=== PATIENT | male | born 1980 | race Caucasian/White ===

== ENCOUNTER → 2021-02-23 11:46 | Outpatient (BNVA) | payer MEDICARE, SELFPAY | PROVIDERS: Visit Provider Nurse Practitioner Family | DX: Z00.00 Encounter for general adult medical examination without abnormal findings (principal); E16.2 Hypoglycemia, unspecified; I10 Essential (primary) hypertension; R45.1 Restlessness and agitation; F11.20 Opioid dependence, uncomplicated | CPT/HCPCS: 80053; 80061; 82607; 83036; 83721; 84443; 87522; G0103 ==

== ENCOUNTER → 2021-07-03 10:00 | Outpatient (BNVA) | payer MEDICARE, SELFPAY | PROVIDERS: Visit Provider Nurse Practitioner Family | DX: R20.2 Paresthesia of skin (principal); R42 Dizziness and giddiness; R79.89 Other specified abnormal findings of blood chemistry | CPT/HCPCS: 80053; 82306; 82607; 83550; 84403 ==

== ENCOUNTER → 2021-07-11 08:34 | Outpatient (BNVA) | payer MEDICARE, SELFPAY | PROVIDERS: Visit Provider Nurse Practitioner Family | DX: R79.89 Other specified abnormal findings of blood chemistry (principal) | CPT/HCPCS: 84403 ==

== ENCOUNTER → 2021-11-22 15:46 | Outpatient (BNVA) | payer MEDICARE, SELFPAY | PROVIDERS: Visit Provider Nurse Practitioner Family | DX: E29.1 Testicular hypofunction (principal); D50.9 Iron deficiency anemia, unspecified; Z13.1 Encounter for screening for diabetes mellitus; E55.9 Vitamin D deficiency, unspecified; R00.2 Palpitations; G89.21 Chronic pain due to trauma; I10 Essential (primary) hypertension; M54.50 Low back pain, unspecified; F11.90 Opioid use, unspecified, uncomplicated | CPT/HCPCS: 80053; 82272; 82728; 83001; 83002; 83550; 83735; 84146; 84402; 85025 ==

== ENCOUNTER → 2021-11-23 12:55 | Outpatient (BNVA) | payer MEDICARE, SELFPAY | PROVIDERS: Visit Provider Internal Medicine Cardiovascular Disease | DX: R00.2 Palpitations (principal); I49.3 Ventricular premature depolarization; I49.1 Atrial premature depolarization | CPT/HCPCS: 93005; 93242 ==

== ENCOUNTER → 2021-12-13 10:15 | Outpatient (BNVA) | payer MEDICARE, SELFPAY | PROVIDERS: Visit Provider Internal Medicine Cardiovascular Disease | DX: R00.2 Palpitations (principal); D50.9 Iron deficiency anemia, unspecified | CPT/HCPCS: 82272 ==

== ENCOUNTER 2022-07-13 08:05 | Outpatient (CLI) | payer MEDICARE, SELFPAY ==
[2022-07-13 09:28] LABS: Basophils # 0.1 10^3/uL (0.0-0.1); Basophils % 0.5 %; Eosinophils # 0.3 10^3/uL (0.0-0.8); Hematocrit 47.7 % (42.0-52.0); Hemoglobin 15.6 g/dL (11.7-16.6); Lymphocytes % 30.9 %; Mean Corpuscular HGB Conc 32.7 g/dL (30.0-36.0); Mean Corpuscular Volume 85.5 fl (80-94); Mean Platelet Volume 11.8 fL (7.4-10.4); Monocytes # 0.7 10^3/uL (0.2-0.9); Monocytes % 7.6 %; Neutrophils # 5.52 10^3/uL (1.8-7.7); Neutrophils % 57.6 %; Nucleated Red Blood Cells % 0 %; Platelet Count 215 10^3/cmm (130-400); Red Blood Count 5.58 10^6/uL (4.1-5.3); Red Cell Distribution Width 13.6 % (12.1-15.1); White Blood Count 9.6 10^3/uL (4.0-10.0)
[2022-07-13 10:17] LABS: 25 Hydroxy Vitamin D 34 ng/mL (30-100); Alanine Aminotransferase 18 U/L (0-41); Albumin Level 4.3 g/dL (3.5-5.2); Alkaline Phosphatase 70 U/L (40-130); Anion Gap 12.2 (5-19); Aspartate Amino Transferase 21 U/L (0-40); Blood Urea Nitrogen 11 mg/dL (6-20); Calcium 9.1 mg/dL (8.5-10.5); Carbon Dioxide 30 mmol/L (22-29); Chloride 99 mmol/L (98-107); Chol HDL Ratio 6.31 mg/dL (1.0-5.00); Cholesterol 164 mg/dL (0-200); Globulin 3.1 g/dL (1.3-4.6); Glomerular Filtration Rate 81.9 mL/min (90-130); Glucose 86 mg/dL (65-115); HDL Cholesterol 26 mg/dL (60-100); Iron 121 ug/dL (59-158); LDL Cholesterol Calculated 67 mg/dL (50-129); LDL HDL Ratio 2.58 RATIO (0.00-3.22); Osmolality Calculated 283 mOsm/kg (285-295); Potassium 4.2 mmol/L (3.5-5.1); Sodium 137 mmol/L (136-145); Total Bilirubin 0.3 mg/dL (0.15-1.2); Total Protein 7.4 g/dL (6.6-8.7); Triglycerides 355 mg/dL (0-150); Vitamin B12 1133 pg/mL (232-1245)
[2022-07-16 13:29] LABS: Sex Hormone Binding Globulin 20 nmol/L (10-50); Testosterone Total Males IA 505 ng/dL (250-827)
[2022-07-17 15:09] LABS: Albumin 4.5 g/dL (3.6-5.1); Testosterone Bioavailable 206.8 ng/dL (110.0-575.0); Testosterone Free 100.5 pg/mL (46.0-224.0)
== END 2022-07-13 08:06 | disposition home or self-care (01) ==
PROVIDERS: Visit Provider Nurse Practitioner Family
DX: E55.9 Vitamin D deficiency, unspecified (principal); D50.9 Iron deficiency anemia, unspecified; E29.1 Testicular hypofunction; I10 Essential (primary) hypertension
CPT/HCPCS: 36415; 80053; 80061; 82040; 82306; 82607; 83540; 84270; 84403; 85025

== ENCOUNTER 2022-12-10 02:54 | Emergency (ER) | payer MEDICARE, SELFPAY ==
[2022-12-10 02:58] VITALS: BMI 38.7
[2022-12-10 02:59] VITALS: BP 165/95; PULSE 79; RESP 16; TEMP 36.4; O2SAT 98
--- NOTE | 2022-12-10 03:04 | CTR_ITS ---
PROCEDURE INFORMATION: Exam: CT Abdomen And Pelvis Without Contrast Exam date and time: 12/10/2022 3:21 AM Age: 42 years old Clinical indication: Abdominal pain; Flank; Left; Additional info: Left flank pain TECHNIQUE: Imaging protocol: Computed tomography of the abdomen and pelvis without contrast. Radiation optimization: All CT scans at this facility use at least one of these dose optimization techniques: automated exposure control; mA and/or kV adjustment per patient size (includes targeted exams where dose is matched to clinical indication); or iterative reconstruction. REPORTING DATA: Count of CT and Cardiac NM exams in prior 12 months: This patient has received 0 known CTs and 0 known cardiac nuclear medicine studies in the 12 months prior to the current study. COMPARISON: CT abdomen pelvis wo/w [id number] 12/02/2016 7:42 PM RADIATION DOSE METRICS: Total DLP (mGy-cm): 1019.54 FINDINGS: Liver: Unremarkable. Gallbladder and bile ducts: No calcified stones. No ductal dilation. Pancreas: No ductal dilation. Spleen: No splenomegaly. Adrenal glands: Normal. No mass. Kidneys and ureters: No calcified renal or ureteral stones. No hydronephrosis. Stomach and bowel: No obstruction. No mucosal thickening. Appendix: Status post appendectomy. Intraperitoneal space: No free air. No significant fluid collection. Vasculature: No abdominal aortic aneurysm. Lymph nodes: No enlarged lymph nodes. Urinary bladder: Unremarkable as visualized. Reproductive: Unremarkable as visualized. Bones/joints: Unremarkable. No acute fracture. Soft tissues: Unremarkable. CT/CT kidney stone [id number] IMPRESSION: No acute findings.
--- NOTE | 2022-12-10 03:05 | W.ED.ABDPA2 ---
HPI - Abdominal Pain General: Chief Complaint: Abdominal Pain Stated Complaint: Sharp Pain Middle Back\Fever Time Seen by Provider: 12/10/22 02:57 Source: patient Mode of arrival: ambulatory Limitations: no limitations History of Present Illness: 42-year-old male states he woke up 2 hours ago with severe left-sided flank pain he states his pain feels like it is deep in nature he denies any worsening proving factors states pain is a 9 out of 10 denies any dysuria he had some nausea denies any vomiting he denies any fever. Denies any history of kidney stone. 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 HTN (hypertension) with goal to be determined Hypogonadism in male Insomnia Surgical History S/P appendectomy S/P tonsillectomy Family History Mother Cancer Grandmother Diabetes Denies family history of CAD (coronary artery disease) Clotting disorder Dementia Hyperlipidemia Psychiatric illness Chronic kidney disease (CKD) Suicide Anesthesia complication Bleeding disorder Family history of premature coronary artery disease Lung disease Hypertension Stroke Social History Smoking and tobacco status: current every day smoker Alcohol intake: never Substance/Drug Use: never Adopted: No Lives independently: Yes Household members: spouse Housing: Other Details: 5th wheel Marital status: Physical Exam Const: COMMON NORMALS: no acute distress, patient oriented x3 and healthy appearing HENMT: COMMON NORMALS: normocephalic and atraumatic HEAD & SCALP: normocephalic and atraumatic Eye: COMMON NORMALS: EOMs intact bilaterally and conjunctivae normal CONJUNCTIVA: Yes conjunctivae normal Neck/C-Spine: COMMON NORMALS: full ROM and supple Chest: COMMONS NORMALS: normal inspection of the chest and normal palpation of entire chest wall Resp: COMMON NORMALS: normal respiratory effort, No retractions, No use of accessory muscles and clear to auscultation bilaterally AUSCULTATION: clear to auscultation bilaterally Cardio: COMMON NORMALS: regular rate, regular rhythm and No murmurs present (Cardio) RATE: regular rate RHYTHM: regular rhythm GI: COMMON NORMALS: Normal to inspection, nondistended, normoactive bowel sounds present, Soft to palpation, non-tender and no masses PALPATION: Yes Soft to palpation Back/Pelvis: COMMON NORMALS: no thoracic nor lumbar tenderness Extremity: COMMON NORMALS: normal to inspection and full ROM Neuro: COMMON NORMALS: patient oriented x3, moves all extremities and no focal motor deficits Psych: COMMON NORMALS: mental status grossly normal, Normal thought process present and cooperative THOUGHT PROCESS: Normal thought process present Skin: COMMON NORMALS: no rashes or lesions noted and no wounds GENERAL SKIN EXAM: no rashes or lesions noted Course Vital Signs: Vital signs: Vital Signs Temperature 97.6 F 12/10/22 02:59 Pulse Rate 75 12/10/22 04:49 Respiratory Rate 18 12/10/22 04:49 Blood Pressure 138/64 12/10/22 04:49 Pulse Oximetry 97 12/10/22 04:49 Oxygen Delivery Me thod Room Air 12/10/22 02:59 MDM - Abdominal Pain Medical Decision Making Patient presents with flank pain that been a passed kidney stone his blood work here is normal white counts normal no signs of infection UA showed no signs of infection CT scan here is normal his pain is improved he is stable for discharge we will prescribe him pain meds along with nausea medicine he is to follow-up with PCP and return if worsening. Medical Records I reviewed the patient's medical records. Lab Data I reviewed the patient's lab results. 12/10/22 03:05 12/10/22 03:05 Labs/Radiology: Radiology Impressions Abdomen/Pelvis CT 12/10/22 03:04 IMPRESSION: No acute findings. Laboratory Results WBC 9.7 10^3/uL (4.0-10.0) 12/10/22 03:05 RBC 5.05 10^6/uL (4.1-5.3) 12/10/22 03:05 Hgb 13.9 g/dL (11.7-16.6) 12/10/22 03:05 Hct 43.3 % (42.0-52.0) 12/10/22 03:05 MCV 85.7 fl (80-94) 12/10/22 03:05 MCH 27.5 pg (28.0-34.0) L 12/10/22 03:05 MCHC 32.1 g/dL (30.0-36.0) 12/10/22 03:05 RDW 13.1 % (12.1-15.1) 12/10/22 03:05 Plt Count 203 10^3/cmm (130-400) 12/10/22 03:05 MPV 10.9 fL (7.4-10.4) H 12/10/22 03:05 Neut % (Auto) 59.2 % 12/10/22 03:05 Lymph % (Auto) 26.2 % 12/10/22 03:05 [place] % (Auto) 11.0 % 12/10/22 03:05 Eos % (Auto) 2.8 % 12/10/22 03:05 Baso % (Auto) 0.5 % 12/10/22 03:05 Neut # (Auto) 5.72 10^3/uL (1.8-7.7) 12/10/22 03:05 Lymph # (Auto) 2.5 10^3/uL (0.8-4.8) 12/10/22 03:05 [place] # (Auto) 1.1 10^3/uL (0.2-0.9) H 12/10/22 03:05 Eos # (Auto) 0.3 10^3/uL (0.0-0.8) 12/10/22 03:05 Baso # (Auto) 0.1 10^3/uL (0.0-0.1) 12/10/22 03:05 Nucleated RBC % (auto) 0 % 12/10/22 03:05 Nucleated RBCs # 0.0 /100WBC 12/10/22 03:05 Sodium 138 mmol/L (136-145) 12/10/22 03:05 Potassium 3.9 mmol/L (3.5-5.1) 12/10/22 03:05 Chloride 102 mmol/L (98-107) 12/10/22 03:05 Carbon Dioxide 26 mmol/L (22-29) 12/10/22 03:05 Anion Gap 13.9 (5-19) 12/10/22 03:05 BUN 11 mg/dL (6-20) 12/10/22 03:05 Creatinine 1.1 mg/dL (0.7-1.2) 12/10/22 03:05 GFR Calculation 73.1 mL/min (90-130) L 12/10/22 03:05 Glucose 106 mg/dL (65-115) 12/10/22 03:05 Calculated Osmolality 286 mOsm/kg (285-295) 12/10/22 03:05 Calcium 9.0 mg/dL (8.5-10.5) 12/10/22 03:05 Total Bilirubin 0.2 mg/dL (0.15-1.2) 12/10/22 03:05 AST 18 U/L (0-40) 12/10/22 03:05 ALT 19 U/L (0-41) 12/10/22 03:05 Alkaline Phosphatase 53 U/L (40-130) 12/10/22 03:05 Total Protein 6.9 g/dL (6.6-8.7) 12/10/22 03:05 Albumin 4.3 g/dL (3.5-5.2) 12/10/22 03:05 Globulin 2.6 g/dL (1.3-4.6) 12/10/22 03:05 Lipase 7 U/L (13-60) L 12/10/22 03:05 Urine Color Yellow (Yellow) 12/10/22 03:37 Urine Appearance Hazy (CLEAR) A 12/10/22 03:37 Urine pH 5 (5-7) 12/10/22 03:37 Ur Specific [place] 1.030 (1.005-1.030) 12/10/22 03:37 Urine Protein 1+ (Negative) H 12/10/22 03:37 Urine Glucose (UA) Norm (Normal) 12/10/22 03:37 Urine Ketones 1+ (Negative) H 12/10/22 03:37 Urine Blood 2+ (Negative) H 12/10/22 03:37 Urine Nitrate Negative (Negative) 12/10/22 03:37 Urine Bilirubin Neg (Negative) 12/10/22 03:37 Urine Urobilinogen 1 mg/dL (Negative) H 12/10/22 03:37 Ur Leukocyte Esterase Trace (Negative) H 12/10/22 03:37 Urine RBC 0-4 /hpf (0-2) H 12/10/22 03:37 Urine WBC 0-4 /hpf (0-5) H 12/10/22 03:37 Ur Squamous Epith Cells 0-4 /hpf (0-5) H 12/10/22 03:37 Calcium Oxalate Crystal 5-10 /hpf H 12/10/22 03:37 Amorphous Sediment Not Reportable 12/10/22 03:37 Urine Bacteria Trace /hpf (NONE) 12/10/22 03:37 Urine Mucus 2+ /hpf 12/10/22 03:37 Discharge Plan Discharge Patient Disposition: Home Clinical Impression: Acute left flank pain Condition: Stable Prescriptions: New hydrocodone-acetaminophen 5-325 mg tablet 1 tab PO Q6H PRN (Reason: pain) Qty: 14 0RF ondansetron 4 mg tablet,disintegrating 4 mg PO Q6H PRN (Reason: nausea and vomiting) Qty: 14 0RF No Action methadone 150 mg wafer PO cholecalciferol (vitamin D3) 1,250 mcg (50,000 unit) capsule 50,000 unit PO .Weekly Qty: 8 0RF lisinopril 5 mg tablet 5 mg PO BID Qty: 180 1RF omega 9-ays-sqj-fish oil [Fish Oil] 300-1,000 mg capsule,delayed release(DR/EC) 1 cap PO BID ferrous gluconate 324 mg (38 mg iron) tablet 324 mg PO DAILY Qty: 90 0RF Rx Instructions: 340 B testosterone [AndroGel] 20.25 mg/1.25 gram (1.62 %) gel in metered-dose pump 2 pump topical DAILY Qty: 75 0RF Rx Instructions: apply 1 pump amount over max area of EACH upper arm and shoulder 340 B if needed. fenofibrate nanocrystallized 48 mg tablet See Rx Instructions .ROUTE .COMPLEX Qty: 90 0RF Dose Instruction: TAKE ONE TABLET BY MOUTH EVERY DAY Rx Instructions: TAKE ONE TABLET BY MOUTH EVERY DAY Discharge Orders: Discharge ED (Routine); Ordered 12/10/22 Ordered By: Bisi [place] Referrals: Yola Landry FNP [Primary Care Provider] - 1-3 days Discharge Diet: Advance as tolerated Discharge Activity: Resume usual activity Patient Instructions: Flank Pain (ED), Opioid Safety Coding Level of Care Code ED Traveling Representative for Rosalie Eddy
[2022-12-10] MEDS: ketorolac 30 mg/mL INJ IVP (03:08)
[2022-12-10] MEDS: ondansetron 2 mg/ML SDV 2 mL 4 MG IVP (03:09)
[2022-12-10 03:13] LABS: Basophils # 0.1 10^3/uL (0.0-0.1); Basophils % 0.5 %; Eosinophils # 0.3 10^3/uL (0.0-0.8); Eosinophils % 2.8 %; Hematocrit 43.3 % (42.0-52.0); Hemoglobin 13.9 g/dL (11.7-16.6); Lymphocytes # 2.5 10^3/uL (0.8-4.8); Lymphocytes % 26.2 %; Mean Corpuscular HGB Conc 32.1 g/dL (30.0-36.0); Mean Corpuscular Hemoglobin 27.5 pg (28.0-34.0); Mean Corpuscular Volume 85.7 fl (80-94); Mean Platelet Volume 10.9 fL (7.4-10.4); Monocytes # 1.1 10^3/uL (0.2-0.9); Neutrophils # 5.72 10^3/uL (1.8-7.7); Neutrophils % 59.2 %; Nucleated Red Blood Cells % 0 %; Platelet Count 203 10^3/cmm (130-400); Red Blood Count 5.05 10^6/uL (4.1-5.3); Red Cell Distribution Width 13.1 % (12.1-15.1); White Blood Count 9.7 10^3/uL (4.0-10.0)
[2022-12-10] MEDS: sodium chloride 0.9% 1,000 ML 999 ML IV (03:14)
[2022-12-10 03:30] LABS: Alanine Aminotransferase 19 U/L (0-41); Albumin Level 4.3 g/dL (3.5-5.2); Alkaline Phosphatase 53 U/L (40-130); Anion Gap 13.9 (5-19); Aspartate Amino Transferase 18 U/L (0-40); Blood Urea Nitrogen 11 mg/dL (6-20); Carbon Dioxide 26 mmol/L (22-29); Chloride 102 mmol/L (98-107); Globulin 2.6 g/dL (1.3-4.6); Glomerular Filtration Rate 73.1 mL/min (90-130); Glucose 106 mg/dL (65-115); Lipase 7 U/L (13-60); Osmolality Calculated 286 mOsm/kg (285-295); Potassium 3.9 mmol/L (3.5-5.1); Sodium 138 mmol/L (136-145); Total Bilirubin 0.2 mg/dL (0.15-1.2); Total Protein 6.9 g/dL (6.6-8.7)
[2022-12-10 04:21] LABS: Add Urine Microscopic? YES; Bilirubin Urine Neg (Negative); Blood Urine 2+ (Negative); Glucose Urine UA Norm (Normal); Ketones Urine 1+ (Negative); Leukocyte Esterase Urine Trace (Negative); Nitrate Urine Negative (Negative); Protein Urine 1+ (Negative); Urine Appearance Hazy (CLEAR); Urine Color Yellow (Yellow); Urobilinogen Urine 1 mg/dL (Negative); pH Urine 5 (5-7)
[2022-12-10 04:22] LABS: Bacteria Urine TRACE /hpf; Mucus Urine 2+ /hpf; RBC Urine 0-4 /hpf (0-2); Squamous Epithelial Cell Urine 0-4 /hpf (0-5); WBC Urine 0-4 /hpf (0-5)
[2022-12-10 04:40] VITALS: RESP 18
[2022-12-10] MEDS: morphine 4 mg/mL SDV 1 mL IVP (04:40)
[2022-12-10 04:49] VITALS: BP 138/64; PULSE 75; RESP 18; O2SAT 97
== END 2022-12-10 04:55 | disposition home or self-care (01) ==
PROVIDERS: Emergency Provider Emergency Medicine; PCP Nurse Practitioner Family
DX: R10.9 Unspecified abdominal pain (principal); F17.210 Nicotine dependence, cigarettes, uncomplicated; I10 Essential (primary) hypertension
CPT/HCPCS: 71046; 74176; 80053; 81001; 83690; 85025; 96361; 96372; 96374; 96375; 99284; 99285; J1885; J2270; J2405; J7030

== ENCOUNTER 2022-12-10 13:23 | Emergency (ER) | payer MEDICARE, SELFPAY ==
[2022-12-10 13:24] VITALS: PULSE 91; RESP 18; TEMP 36.3; O2SAT 97
--- NOTE | 2022-12-10 14:09 | PC.NURSE ---
patient not in waiting area.
--- NOTE | 2022-12-10 14:21 | PC.NURSE ---
rec'd pt in [facility]- this RN assumed care
--- NOTE | 2022-12-10 14:57 | XR_ITS ---
WS: [id number] XR chest 2V* [id number] REASON FOR EXAM: left side pleuritic pain FINDINGS: Mild tortuosity the thoracic aorta. Normal heart size. Calcified granulomatous disease in both hemithoraces. No active pulmonary parenchymal or pleural disease. Moderate degenerative spondylosis in the mid and lower thoracic spine with mild disc space narrowing and moderate osteophyte formation. XR/XR chest 2V* [id number] IMPRESSION: No acute chest abnormality.
--- NOTE | 2022-12-10 15:02 | W.ED.MALEGU ---
HPI - Male Genitourinary General: Chief complaint: Urogenital-Male Stated complaint: kidney stone pain Time Seen by Provider: 12/10/22 14:28 History of Present Illness: Patient is a 42-year-old male comes to the ED with left flank pain. Patient was seen here in the ED earlier this morning and his urine showed some oxalate crystals and CT of abdomen pelvis showed no acute findings. He was diagnosed with acute left flank pain and it was the likely due to passing kidney stone. Patient was discharged home with some nausea and pain meds. He states that he has not been able to have any relief in pain since he went home from the ED earlier this morning. Pain is located in left flank. He says he has worsening pain if he takes a deep breath. He rates his pain currently a 10 out of 10. Endorses nausea and some episodes of emesis. Patient has not taken his prescribed pain meds because he was nauseous and threw up so he came here to the ED for evaluation. Associated symptoms: Deny dysuria, hematuria, nausea or vomiting Review of Systems Const: Denies: fever(s), chills or fatigue Eyes: Denies: change in vision or eye discomfort ENMT: Denies: throat pain, odynophagia, nasal discharge or nasal congestion Card: Denies: chest pain, palpitations, edema, swelling of feet/ankles, dyspnea on exertion or orthopnea Resp: Reports: pain on inspiration (Left-sided pain with inspiration); Denies: dyspnea, productive cough or non-productive cough GI: Denies: abdominal pain, nausea, vomiting, diarrhea, constipation or hematochezia : Reports: flank pain; Denies: difficulty urinating, dysuria or hematuria Musc: Denies: neck pain, back pain or extremity swelling Skin/Breast: Denies: rash or new lesions Neuro: Denies: headache(s), numbness in extremities or weakness in extremities PFS ED PFSH: Medical History Anal fissure Essential (primary) hypertension H/O drug abuse 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 HTN (hypertension) with goal to be determined Hypogonadism in male Insomnia Surgical History S/P appendectomy S/P tonsillectomy Family History Mother Cancer Grandmother Diabetes Denies family history of CAD (coronary artery disease) Clotting disorder Dementia Hyperlipidemia Psychiatric illness Chronic kidney disease (CKD) Suicide Anesthesia complication Bleeding disorder Family history of premature coronary artery disease Lung disease Hypertension Stroke Social History Smoking and tobacco status: current every day smoker Alcohol intake: never Substance/Drug Use: never Adopted: No Lives independently: Yes Household members: spouse Housing: Other Details: 5th wheel Marital status: Physical Exam Const: COMMON NORMALS: no acute distress, patient oriented x3 and alert GENERAL APPEARANCE: cooperative HENMT: COMMON NORMALS: normocephalic HEAD & SCALP: normocephalic MOUTH: Normal oral and palatal mucosa present THROAT: posterior oropharynx normal and uvula midline Neck/C-Spine: COMMON NORMALS: supple GENERAL: Yes normal visual inspection Resp: COMMON NORMALS: normal respiratory effort, No retractions, No use of accessory muscles and clear to auscultation bilaterally AUSCULTATION: clear to auscultation bilaterally Cardio: COMMON NORMALS: regular rate, regular rhythm, S1 normal heart sound present, S2 normal heart sound present, No gallops present (Cardio), No clicks present (Cardio), No murmurs present (Cardio) and Peripheral pulses 2+ throughout RATE: regular rate RHYTHM: regular rhythm HEART SOUNDS: S1 normal heart sound present and S2 normal heart sound present PERIPHERAL PULSES: Peripheral pulses 2+ throughout GI: COMMON NORMALS: Normal to inspection, nondistended, normoactive bowel sounds present, Soft to palpation, non-tender and no masses PALPATION: Yes Soft to palpation : BLADDER/KIDNEY EXAM: Yes CVA tenderness on the left Back/Pelvis: GENERAL BACK: Yes CVA tenderness Extremity: COMMON NORMALS: normal to inspection Neuro: COMMON NORMALS: patient oriented x3 SENSORIUM/ORIENTATION: Yes alert GAIT: Yes Normal gait present Skin: GENERAL SKIN EXAM: dry skin Course Vital Signs: Vital signs: Vital Signs Temperature 98.2 F 12/10/22 16:15 Pulse Rate 66 12/10/22 16:15 Respiratory Rate 14 12/10/22 16:15 Blood Pressure 148/83 12/10/22 16:15 Pulse Oximetry 97 12/10/22 16:15 Oxygen Delivery Me thod Room Air 12/10/22 13:24 MDM - Male Medical Decision Making Patient is a 42-year-old male comes to the ED with left flank pain. Patient was seen here in the ED earlier this morning and his urine showed some oxalate crystals and CT of abdomen pelvis showed no acute findings. He was diagnosed with acute left flank pain and it was the likely due to passing kidney stone. Patient was discharged home with some nausea and pain meds. He states that he has not been able to have any relief in pain since he went home from the ED earlier this morning. Patient has not taken his prescribed pain meds because he was nauseous and threw up so he came here to the ED for evaluation. Pain is located in left flank. He says he has worsening pain if he takes a deep breath. He rates his pain currently a 10 out of 10. Endorses nausea and some episodes of emesis. Vitals are stable. Patient appears nontoxic in no acute distress. He does have some left CVA tenderness but the rest of exam is benign. Given the fact that patient was having some left-sided pleuritic pain chest x-ray was performed and showed no acute findings. He was given a dose of IM morphine here in the ED and his pain improved. He was stable for discharge home diagnosed with acute left flank pain. He was sent home with a prescription for a couple ketorolac tablets. Return to ED precautions given. Patient understood and agreed with plan. Lab Data Radiology Impressions Chest X-Ray 12/10/22 14:57 IMPRESSION: No acute chest abnormality. Discharge Plan Discharge Patient Disposition: Home Clinical Impression: Acute left flank pain Condition: Stable Prescriptions: New ketorolac 10 mg tablet 10 mg PO Q8H PRN (Reason: pain) Qty: 6 0RF No Action methadone 150 mg wafer PO cholecalciferol (vitamin D3) 1,250 mcg (50,000 unit) capsule 50,000 unit PO .Weekly Qty: 8 0RF lisinopril 5 mg tablet 5 mg PO BID Qty: 180 1RF omega 7-roq-fvb-fish oil [Fish Oil] 300-1,000 mg capsule,delayed release(DR/EC) 1 cap PO BID ferrous gluconate 324 mg (38 mg iron) tablet 324 mg PO DAILY Qty: 90 0RF Rx Instructions: 340 B testosterone [AndroGel] 20.25 mg/1.25 gram (1.62 %) gel in metered-dose pump 2 pump topical DAILY Qty: 75 0RF Rx Instructions: apply 1 pump amount over max area of EACH upper arm and shoulder 340 B if needed. fenofibrate nanocrystallized 48 mg tablet See Rx Instructions .ROUTE .COMPLEX Qty: 90 0RF Dose Instruction: TAKE ONE TABLET BY MOUTH EVERY DAY Rx Instructions: TAKE ONE TABLET BY MOUTH EVERY DAY hydrocodone-acetaminophen 5-325 mg tablet 1 tab PO Q6H PRN (Reason: pain) Qty: 14 0RF ondansetron 4 mg tablet,disintegrating 4 mg PO Q6H PRN (Reason: nausea and vomiting) Qty: 14 0RF Discharge Orders: Discharge ED (Routine); Ordered 12/10/22 Ordered By: Lawrence Quintana Referrals: Yola Landry FNP [Primary Care Provider] - Discharge Diet: Regular Discharge Activity: Increase activity as tolerated Patient Instructions: Flank Pain (ED) Activity Restrictions/Additional Instructions: Follow-up with medical provider as directed in the next 7 to 10 days for reevaluation. Take medications as prescribed. Return to the ER or your medical provider if condition worsens. Please read and understand discharge instructions. Thank you for choosing [facility] for your healthcare needs today. Please realize this is an emergency room and that we are providing you with a medical screening exam and this may not be complete and all inclusive of all the testing and or work up that you may need to determine your ailment or severity of your illness. It is very important that you follow up as instructed or that you return to the Emergency Department should you have concerns or if your condition changes or worsens in any way. Coding Level of Care Code ED Public Service Officer for Rosalie Eddy
[2022-12-10 15:03] VITALS: RESP 16
[2022-12-10] MEDS: morphine 4 mg/mL SDV 1 mL IM (15:03)
[2022-12-10 16:15] VITALS: BP 148/83; PULSE 66; RESP 14; TEMP 36.8; O2SAT 97
== END 2022-12-10 16:17 | disposition home or self-care (01) ==
PROVIDERS: Emergency Provider Physician Assistant; PCP Nurse Practitioner Family
DX: R10.9 Unspecified abdominal pain (principal); F17.210 Nicotine dependence, cigarettes, uncomplicated; I10 Essential (primary) hypertension
CPT/HCPCS: 71046; 96372; 99284; J2270

== ENCOUNTER 2024-12-27 11:45 | Emergency (ER) | payer MEDICARE, SELFPAY ==
--- OUTSIDE RECORDS SUMMARY | 2005-11-28 19:00 | XMS_ITS | Continuity of Care Document ---
Author Organization [facility] Address [id number] [address] Phone Care Team Providers Care Professor Of Public Administration Name Role Phone Lázaro Rodriguez MD Unavailable Unavailable Medications Medication Instructions Dosage Effective Dates (start - stop) Status Comments METHADONE HCL (unknown strength) SI TAB orally 2 times a day Not Available - Active TRAZODONE HCL (unknown strength) SI.5 TAB to 1.5 tab(s) orally once a day (at bedtime) Not Available - Active ROBAXIN (unknown strength) SI tab(s) to 2 tab(s) orally 4 times a day Not Available - Active naproxen 500 mg Tab, Delayed Release SI ECT orally 2 times a day - Active BUSPAR (unknown strength) SI.5 mg orally 2 times a day 1/2 tab po BID x 1 week then 1 tab po BID Not Available - Active METHADONE HCL (unknown strength) SI.5 tab(s) orally every 8 hours for 30 day(s) Not Available - Active Procedures Procedure Date EST-EXP PROB FOC/LOW COMPLEXITY 006 EST-EXP PROB FOC/LOW COMPLEXITY 006 EST-EXP PROB FOC/LOW COMPLEXITY 006 Advance Directives Directive Yes / No Effective Date File Name No Information Encounters Encounter Description Practice Location Reason(s) For Visit Diagnoses Date Provider Providers Copied on Encounter [facility], [id number]- [facility], [place], [place], [id number], [place] tel:[phone] Family Medicine F1 No Information 6 Michael Sesay. [address] [place], [place], [id number], [place]. tel:[phone] EST-EXP PROB FOC/LOW COMPLEXITY [facility], [id number]- [facility], [place], [place], [id number], [place] tel:[phone] Family Medicine F1 No Information 6 No Information EST-EXP PROB FOC/LOW COMPLEXITY [facility], [id number], [address], [place] tel:[phone] Family Medicine F1 Backache, unspecifiedAcute pharyngitis 6 No Information EST-EXP PROB FOC/LOW COMPLEXITY [facility], [id number], [address], [place] tel:[phone] Family Medicine F1 Osteoarthrosis, unspecified whether generalized or localized, involving unspecified site 6 No Information [facility], [id number], [address], [place] tel:[phone] Family Medicine F1 Nondependent tobacco use disorderOsteoarth rosis, generalized, involving unspecified siteNON-BILLABLE VISIT 5 No Information [facility], [id number], [id number], [place] tel:[phone] Family Medicine F1 Acute pharyngitisOsteoa rthrosis, generalized, involving unspecified site Mar-2 5 No Information [facility], [id number], [address], [place] tel:[phone] Family Medicine F1 Acute pharyngitis Sep-2 5 No Information [facility], [id number]- [facility], [facility], [place], [id number], [place] tel:[phone] Family Medicine F1 Unspecified essential hypertensionOsteo arthrosis, generalized, involving unspecified site 5 No Information [facility], [id number]- [facility], [place], [place], [address], [place] tel:[phone] Family Medicine F1 Unspecified essential hypertensionOsteo arthrosis, generalized, involving unspecified site 5 No Information [facility], [id number]- [facility], [place], [place], [address], [place] tel:[phone] Family Medicine F1 Unspecified essential hypertensionOsteo arthrosis, generalized, involving unspecified site 5 No Information [facility], [id number]- [facility], [place], [place], [address], [place] tel:[phone] Family Medicine F1 Osteoarthrosis, generalized, involving unspecified siteNON-BILLABLE VISIT No Information Family History Family Member Type Diagnosis Age At Onset No Information Payers Payer name Insurance type Covered alliance party ID Authoriza tion(s) No Information Social History Type Description Quantity Date Captured Comments Sex Male Smoking Status No Information Chief Complaint And Reason For Visit No Information Reason For Referral Reason For Referral No Information History Of Present Illness Encounter Date Complaint History Of Prese nt Illness No Information Functional Status Date Functional Assessmen t No Information Instructions Date Instruction Additional Infor mation No Information Assessments Type Assessment Date No Information Patient Care Teams Name Effective Dates (start - stop) Status Members No Information
[2024-12-27 11:54] VITALS: BP 173/93; PULSE 85; TEMP 36.7; O2SAT 98; BMI 36.6
--- OUTSIDE RECORDS SUMMARY | 2024-12-27 12:02 | XMS_ITS | Data Portability ---
Author Organization [facility] [place] [facility] Tony Peace [facility] Address [address] [address] Care Team Providers Care Financial Operations Clerk Name Role Phone TALITA SESAY Primary Care Provider Assessment No assessment recorded. Plan of Treatment Reminders Order Date Submit Date Provider Last Modified By Organization Details Last Modified Time Details Appointments None recorded. Lab vitamin D, 25-hydroxy , total, serum 2022 023 [facility], [address], [place], [address], 06:01:36 lipid panel, blood 2022 023 [email or web address], [address], [facility], [place], [address], 3 09:38:17 CMP, serum or plasma 2022 023 [email or web address], [address], [facility] 1, [place], [address], 3 09:38:15 CBC 2022 023 [email or web address], [address], [facility] 1, [place], [address], 3 17:45:39 testostero ne, total, serum 2022 023 [facility], [address], [address], [place], [address], 06:01:35 Referral None recorded. Procedures None recorded. Surgeries None recorded. Imaging None recorded. Medication Orders losartan 25 mg tablet 2022 023 [facility], [address], [place], [address], 17:14:57 Patient TargetsNo targets recorded. Patient InstructionsNo instructions recorded. Reason for Referral None Reported. Results Created Date Observation Date Name Description Value Unit Range Abnormal Flag Note LastModifiedBy Organization Detail LastModifiedTime 06/26/2006/26/2023 CBC WBC 10.7 x10 4.5-10 .5 high Not Available [facility] [place] [facility] [address] [facility], [place], [address], 06/26/2023 17:45:39 06/26/20 23 06/26/2023 CBC RBC 5.37 x10 4.30-5 .90 Not Available [facility] [place] [facility] [address] [facility], [place], [address], 06/26/2023 17:45:39 06/26/20 23 06/26/2023 CBC HGB 15.4 g/dL 13.5-1 8.0 Not Available [facility] [place] [facility] [address] Aid[address] [facility] 1, [place], [address], 06/26/2023 17:45:39 06/26/20 23 06/26/2023 CBC HCT 46.0 % 35.0-6 0.0 Not Available [facility] [place] [facility] [address] [facility] 1, [place], [address], 06/26/2023 17:45:39 06/26/20 23 06/26/2023 CBC MCV 85.6 fL 80.0-9 9.9 Not Available [facility] [place] [facility] [address] [facility] 1, [place], [address], 06/26/2023 17:45:39 06/26/20 23 06/26/2023 CBC MCH 28.7 pg 27.0-3 2.0 Not Available [facility] [place] [facility] [address] [facility] 1, [place], [address], 06/26/2023 17:45:39 06/26/20 23 06/26/2023 CBC MCHC 33.5 g/dL 32.0-3 6.0 Not Available [facility] [place] [facility] [address] [facility] 1, [place], [address], 06/26/2023 17:45:39 06/26/20 23 06/26/2023 CBC RDW 14.5 % 11.5-1 4.5 Not Available [facility] [place] [facility] [address] [facility] 1, [place], [address], 06/26/2023 17:45:39 06/26/20 23 06/26/2023 CBC plt 199.0 x10 150.0- 451.0 Not Available [facility] [facility] [place] [facility] [address] [facility] 1, [place], [address], 06/26/2023 17:45:39 06/26/20 23 06/26/2023 CBC lymphocytes % 31.5 % 20.0-5 0.0 Not Available [facility] [facility] [place] [facility] [address] [facility] 1, [place], [address], 06/26/2023 17:45:39 06/26/20 23 06/26/2023 CBC granulcytes % 58.1 % 30.0-7 0.0 Not Available [facility] [facility] [place] [facility] [address] [facility] [address] [facility] 1, [place], [address], 06/26/2023 17:45:39 06/26/20 23 06/26/2023 CBC monocytes % 6.9 % 2.0-10 .0 Not Available [facility] [place] [facility] [address] [facility] [address], [place], [address], 06/26/2023 17:45:39 06/26/20 23 06/26/2023 CBC granulcytes# 6.2 x10 Not Elizabeth ilable [facility] [place] [facility] [address] [facility] [address], [place], [address], 06/26/2023 17:45:39 06/26/20 23 06/26/2023 CBC lymphocytes # 3.4 x10 Not Available [facility] [place] [facility] [address] [facility] [address], [place], [address], 06/26/2023 17:45:39 06/26/2006/26/2023 CBC monocytes # 0.7 x10 Not Avai lable [facility] [address] [facility] 1, [place], [address], 06/26/2023 17:45:39 06/26/20 23 06/27/2023 CMP (MALE ) glucose 90.0 mg/dL 60.0-9 9.0 Not Available [facility] [place] [facility] [address] [facility] [address] [facility] 1, [place], [address], 06/27/2023 09:38:15 06/26/20 23 06/27/2023 CMP (MALE ) BUN (blood urea nitrogen) 13.0 mg/dL 10.0-2 6.0 Not Available [facility] [place] [facility] [address] [facility] 1, [place], [address], 06/27/2023 09:38:15 06/26/2006/27/2023 CMP (MALE ) creatinine (serum) 1.1 mg/dL 0.4-1. 5 Not Available [facility] [address] [facility] 1, [place], [address], 06/27/2023 09:38:15 06/26/2022 0606/27/2023 CMP (MALE ) BUN/creatini ne ratio 11.82 ratio Not Available [facility] [address] [facility] 1, [place], [address], 06/27/2023 09:38:15 06/26/20 23 06/27/2023 CMP (MALE ) eGFR calculated 77.7 Not Available [facility] [facility] [place] [facility] [address] [facility] 1, [place], [address], 06/27/2023 09:38:15 06/26/20 23 06/27/2023 CMP (MALE ) total protein 7.6 g/dL 6.0-8. 5 Not Available [facility] [address] [facility] 1, [place], [address], 06/27/2023 09:38:15 06/26/20 23 06/27/2023 CMP (MALE ) total bilirubin 0.3 mg/dL 0.2-1. 3 Not Available [facility] [address] [facility] 1, [place], [address], 06/27/2023 09:38:15 06/26/20 23 06/27/2023 CMP (MALE ) albumin 4.3 g/dL 3.5-5. 5 Not Available [facility] [address] [facility] 1, [place], [address], 06/27/2023 09:38:15 06/26/20 23 06/27/2023 CMP (MALE ) globulin 3.3 calc Not Available [facility] [address] [facility] 1, [place], [address], 06/27/2023 09:38:15 06/26/20 23 06/27/2023 CMP (MALE ) AST (SGOT) 38.0 U/L 0.0-46 .0 Not Available [facility] [address] [facility] 1, [place], [address], 06/27/2023 09:38:15 06/26/20 23 06/27/2023 CMP (MALE ) altv (SGPT) 49.0 U/L 13.0-6 9.0 normal Not Available [facility] [place] [facility] [place] [facility] [address] [facility] [address], [place], [address], 06/27/2023 09:38:15 06/26/20 23 06/27/2023 CMP (MALE ) A/G ratio 1.3 ratio Not Available [facility] [address], [place], [address], 06/27/2023 09:38:15 06/26/20 23 06/27/2023 CMP (MALE ) ALP phos 55.0 U/L 30.0-1 40.0 normal Not Available [facility] [place] [facility] [place] [facility] [address] [facility] 1, [place], [address], 06/27/2023 09:38:15 06/26/20 23 06/27/2023 CMP (MALE ) calcium 8.8 mg/dL 8.4-10 .5 Not Available [facility] [place] [facility] [place] [facility] [address] [facility] 1, [place], [address], 06/27/2023 09:38:15 06/26/20 23 06/27/2023 CMP (MALE ) sodium 138.0 mmol/ L 136.0- 145.0 Not Available [facility] [place] [facility] [place] [facility] [address] [facility] 1, [place], [address], 06/27/2023 09:38:15 06/26/20 23 06/27/2023 CMP (MALE ) potassium 4.1 mmol/ L 3.5-5. 1 Not Available [facility] [place] [facility] [place] [facility] [address] [facility] 1, [place], [address], 06/27/2023 09:38:15 06/26/20 23 06/27/2023 CMP (MALE ) chloride 101.0 mmol/ L 98.0-1 10.0 normal Not Available [facility] [place] [facility] [place] [facility] [address] [facility] 1, [place], [address], 06/27/2023 09:38:15 06/26/20 23 06/27/2023 CMP (MALE ) C02 28.0 mmol/ L 22.0-3 1.0 Not Available [facility] [place] [facility] [place] [facility] [address] [facility] 1, [place], [address], 06/27/2023 09:38:15 06/26/20 23 06/27/2023 CMP (MALE ) anion gap 9.0 calc Not Available [facility] [address] [facility] 1, [place], [address], 06/27/2023 09:38:15 06/26/20 23 06/27/2023 CMP (MALE ) osmolality 284.8 calc Not Available [facility] [place] [facility] [place] [facility] [address] [facility] 1, [place], [address], 06/27/2023 09:38:15 06/26/20 23 06/27/2023 LIPID PROFI LE (MALE ) cholesterol 217.0 mg/dL 0.0-20 0.0 high Not Available [facility] [place] [facility] [place] [facility] [address] [facility] 1, [place], [address], 06/27/2023 09:38:17 06/26/20 23 06/27/2023 LIPID PROFI LE (MALE ) trig 575.0 mg/dL 0.0-15 0.0 high Not Available [facility] [place] [facility] [place] [facility] [address] [facility] 1, [place], [address], 06/27/2023 09:38:17 06/26/20 23 06/27/2023 LIPID PROFI LE (MALE ) HDL - direct 23.0 mg/dL >40.0 low Not Available [facility] [place] [facility] [place] [facility] [address] [facility], [place], [address], 06/27/2023 09:38:17 06/26/20 23 06/27/2023 LIPID PROFI LE (MALE ) VLDL - direct 115.0 mg/dL Not Available [facility] [address] [facility], [place], [address], 06/27/2023 09:38:17 06/26/20 23 06/27/2023 LIPID PROFI LE (MALE ) LDL - direct 79.0 mg/dL 0.0-13 0.0 Not Available [facility] [address] [facility], [place], [address], 06/27/2023 09:38:17 06/26/20 23 06/28/2023 TESTO STERO NE, TOTAL , MALES (ADUL T), IA testosterone , total, males (adult), ia 72 NG/dL 250-82 7 low In hypog onada l males , Testo stero ne, Total , LC/MS /MS, is the recom jaja d assay due to the dimin ished accur acy of immun oassa y at level s below 250 ng/dL . This test code (1598 3) must be colle cted in a red-t op tube with no gel. Not Available Information [facility] [address], [place], [address], 06/28/2023 06:01:35 06/26/2006/28/2023 VITAM IN D,25- OH,TO DANAY,I A vitamin D,25-oh,tota l,ia 48 NG/mL 30-100 normal Vitam in D Statu s 25-OH Vitam in D: Defic iency : <20 ng/mL Insuf ficie ncy: 20 - 29 ng/mL Optim al: > or = 30 ng/mL For 25-OH Vitam in D testi ng on patie nts on D2-lozada pplem entat ion and patie nts for whom quant itati on of D2 and D3 fract ions is requi red, the [facility] Assur eD(TM ) 25-OH VIT D, (D2,D 3), LC/MS /MS is recom jaja d: order code 21342 (ramon ents >2yrs ). See Note 1 Note 1 For addit ional infor christine griffin refer to http: //[facility] jose g Blanco stDia gnost ics.c om/fa q/FAQ 199 (This link is being provi ded for infor rosalino ba/ educa alvin l purpo ses only. ) Not Available [facility] [address] [place], [address], 06/28/2023 06:01:36 Result Notes None recorded. Problems Name Problem SNOMED Code Status Onset Date Resolution Date Notes Provider Name and Address Organization Details Recorded Time Anxiety state 272229690 Completed 201803/05/2019 Anxiety Disorder - Status is Inactive ; 03/05/20 1:29PM by Renetta Ayala CMT, Annotati on/Adden dum; Promoted ; acuity set as *; Not Available [facility] 3 03:08:16 Hyperten sive disorder 98243906 Completed 201803/05/2019 Hyperten skylar - Status is Inactive ; 03/05/20 1:29PM by Renetta Ayala CMT, Annotati on/Adden dum; Promoted ; acuity set as *; Not Available [facility] 3 03:08:16 Depressi ve disorder 99767282 Completed 201803/05/2019 depressi on - Status is Inactive ; 03/05/20 1:29PM by Renetta Ayala CMT, Annotati on/Adden dum; Promoted ; acuity set as *; Not Available [facility] 3 03:08:17 Acute back pain with sciatica 428468307 Active 2018 CHRONIC BILATERA L LOW BACK PAIN WITH BILATERA L SCIATICA Leidy downs [facility] 4 19:04:58 Insomnia 401270958 Completed 201803/05/2019 Insomnia - Status is Inactive ; 03/05/20 1:29PM by Renetta Ayala CMT, Annotati on/Adden dum; Promoted ; acuity set as *; INSOMNI A; Recorded 03/05/20 1:48PM by IRIS Headley, Office Visit; Promoted ; acuity set as *; Not Available [facility] 3 03:08:17 Tonsille ctomy Completed 201803/05/2019 Tonsilli s removed - Status is Inactive ; 03/05/20 1:28PM by Renetta Ayala CMT, Annotati on/Adden dum; Promoted ; acuity set as *; Not Available [facility] 3 03:08:17 Chronic back pain 029936960 Completed 201803/05/2019 Chronic back problems do to machine injury - Status is Inactive ; 03/05/20 1:29PM by Renetta Ayala CMT, Annotati on/Adden dum; Promoted ; acuity set as *; Not Available [facility] 3 03:08:17 Chronic pain 40294714 Active 2022 EARNEST downs [facility] 3 16:54:01 Hypercho lesterol emia 33730109 Active 2022 EARNEST downs [facility] 3 16:54:22 [facility] hyperten skylar 11312382 Active 2022 EARNEST downs [facility] 3 16:54:37 Testoste johanna level below referenc e range 162902646 Active 2022 EARNEST downs [facility] 3 16:55:10 Anemia 288577445 Active 2022 Talita Sesay MD [address] [place] [address], [address] , [facility] 3 17:13:27 Vitamin D deficien 89626237 Active 2022 Talita Sesay MD [address] [place], [address] , [facility]é Luis 3 17:15:21 Problem Notes None recorded. Procedures Surgical History Date Name Laterality Status Provider Name and Address Organization Details Recorded Time Appendectomy completed [facility] 06/26/2023 16:57:47 Tonsillectomy completed [facility]é Luis 06/26/2023 16:57:54 graft of skin to skin completed [facility]é Luis 06/26/2023 16:58:32 Imaging Results None recorded. Procedure Notes None recorded. Medical Equipment None Reported. Allergies Allergen ID Allergen Name Allergen Category Reaction Reaction Severity Criticality Documentation Date Start Date Code Code System Note Provider Name and Address Organization Details Recorded Time 30911 varenicli ne tartrate medicatio n rash mild low 01/26/2023 33564 4 RxNorm Leidy Plraissa [facility] L[facility]CJosé Luis 4 19:04:52 24406 iodine medicatio n Not available Not available Not available 01/26/2023 5933 RxNorm Comme nt: Recor ded 03/05 1:28P M by Connor gillespie CMT, Offic e Visit ; Akosua willis ce: *; ; [facility] 3 16:50:26 Medications Name Sig Start Date Stop Date Status Note LastModified by Organization Details LastModified Time amoxicill in 500 mg capsule TAKE 1 CAPSULE BY MOUTH THREE TIMES DAILY UNTIL GONE active Not Available Not Available No t Available triazolam 0.25 mg tablet TAKE 1 TABLET BY MOUTH one hour before appointm ent. bring other TO appointm ent. must have helper/driver 06/26 completed Not Available Not Available Not Available ibuprofen 800 mg tablet three times daily, as needed 06/26 completed 0; Recorded 03/05/20 19 1:31PM by Renetta Ayala CMT, Office Visit; Not Available Not Available Not Available hydrocodo ne 5 mg-acetam inophen 325 mg tablet TAKE 1 TABLET BY MOUTH EVERY 6 HOURS NEEDED FOR PAIN 06/26 completed Not Available Not Available Not Available tramadol 50 mg tablet TAKE 1 TABLET BY MOUTH EVERY 6 HOURS NEEDED FOR PAIN active Not Available Not Available No t Available amoxicill in 500 mg tablet TAKE 1 TABLET BY MOUTH THREE TIMES DAILY UNTIL GONE active Not Available Not Available No t Available ketorolac 10 mg tablet TAKE 1 TABLET BY MOUTH EVERY 8 HOURS NEEDED FOR PAIN 06/26 completed Not Available Not Available Not Available losartan 25 mg tablet TAKE 1 TABLET BY MOUTH ONCE DAILY active Not Available Not Available No t Available Tylenol 325 mg tablet as needed 06/26 completed 0; Recorded 03/05/20 19 1:31PM by Renetta Ayala CMT, Office Visit; Not Available Not Available Not Available lisinopri l 5 mg tablet TAKE 1 TABLET BY MOUTH TWICE DAILY 06/26 completed Not Available Not Available Not Available ondansetr on 4 mg disintegr ating tablet DISSOLVE ONE TABLET BY MOUTH EVERY 6 HOURS NEEDED FOR NAUSEA AND VOMITING 06/26 completed Not Available Not Available Not Available amoxicill in 875 mg-potass ium clavulana te 125 mg tablet TAKE 1 TABLET BY MOUTH EVERY TWELVE HOURS for 10 days 06/26 completed Not Available Not Available Not Available magnesium 250 mg (as magnesium oxide) tablet Take 1 tablet every day by oral route. active Not Available Not Available No t Available Ferrocite 324 mg (106 mg iron) tablet Take 1 tablet every day by oral route. active Not Available Not Available No t Available methadone 105 mg every day active Not Available Not Available No t Available amitripty line at bedtime 06/26 completed Recorded 03/05/20 19 1:56PM by IRIS Headley, Office Visit; Refill Quantity : 30; Tablet; Not Available Not Available Not Available multivita min 1 tab every day active Not Available Not Available No t Available fenofibra te nanocryst allized 48 mg tablet TAKE ONE TABLET BY MOUTH EVERY DAY 2023 active Not Available Not Available Not Avai lable testoster one 20.25 mg/1.25 gram per pump act.(1.62 %) transderm al gel APPLY TWO PUMPS TOPICALL Y EVERY DAY 2024 active Not Available Not Available Not Avai lable Fish Oil 1,000 mg (120 mg-180 mg) capsule Take 2 capsules every day by oral route. active Not Available Not Available No t Available vitamin D3 800 unit-foli c acid 1 mg-collag en,hydrol ys 300 mg capsule Take 1 capsule every day by oral route. active Not Available Not Available No t Available Fish Oil 1,200 mg (144 mg-216 mg) capsule Take 1 capsule every day by oral route. 06/26 completed Not Available Not Available Not Available Vitals Date Recorded Respiratory rate Body height Body mass index (BMI) Body weight Body temperature Heart rate Oxygen saturation Oxygen saturation in Arterial blood by Pulse oximetry Systolic blood pressure Diastolic blood pressure Provider Name and Address Organization Details Last Updated DateTime 3 20 /min 177.8 cm 37 kg/m2 290774. 53 g 97.8 [degF] 77 /min 97 % 97 % 172 mm[Hg] 90 mm[Hg] EARNEST EDWARDS [facility] 17:03:04 Social History Question Answer Notes LastModified by Organizat ion Details LastModified Time Tobacco Smoking Status Current Every Day Smoker EARNEST downs [facility] 06/26/2023 16:59:32 Do You Have An Advance Directive? No Information not available 06/26/2023 Do You Wear A Helmet When Biking? No Information not available 06/26/2023 Are You Blind Or Do You Have Difficulty Seeing? No Information not available 06/26/2023 What Is Your Level Of Caffeine Consumption? Moderate Information not available 06/26/2023 Are You Deaf Or Do You Have Serious Difficulty Hearing? No Information not available 06/26/2023 What Type Of Diet Are You Following? REGULAR Information not available 06/26/2023 Which Illicit Or Recreational Drugs Have You Used? THC DAILY Information not available 06/26/2023 What Is The Highest Grade Or Level Of School You Have Completed Or The Highest Degree You Have Received? DX50775-3 Information not available 06/26/2023 Which Of Your Hands Is Dominant? Left Information not available 06/26/2023 Do You Use Your Seat Belt Or Car Seat Routinely? Yes Information not available 06/26/2023 How Much Tobacco Do You Smoke? 1 PPD Information not available 06/26/2023 Do You Participate In Social Media? No Information not available 06/26/2023 Have You Recently Traveled Abroad? No Information not available 06/26/2023 Have You Used IV Drugs? No Information not available 06/26/2023 Do You Have Difficulty Walking Or Climbing Stairs? No Information not available 06/26/2023 Are You Currently In School? No Information not available 06/26/2023 Do You Have Any Dietary Restrictions? No Information not available 06/26/2023 Sex: Unknown Functional Status Question Answer Note LastModified by Organizat ion Details LastModified Time Do you use any illicit or recreational drugs? Yes Information not available 06/26/2023 What is your level of alcohol consumption? None Information not available 06/26/2023 Are you currently employed? No Information not available 06/26/2023 Do you have transportation difficulties? No Information not available 06/26/2023 Are you able to walk? YESWOREST Information not available 06/26/2023 Are you able to care for yourself? Yes Information not available 06/26/2023 Do you have difficulty dressing or bathing? No Information not available 06/26/2023 What is your exercise level? None Information not available 06/26/2023 Mental Status Question Answer Note LastModified by Organizat ion Details LastModified Time Do you feel stressed (tense, restless, nervous, or anxious, or unable to sleep at night)? [id number] Information not available 06/26/2023 Do you have difficulty concentrating, remembering or making decisions? No Information no t available 06/26/2023 Family History Nothing Reported. Medical History No medical history recorded. Immunizations Vaccine Type Date Status Note Provider Nam e and Address Organization Details Recorded Time Tdap 12/02/2016 completed EARNEST MCCONNELLEllie downs [facility] 06/26/2023 18:55:46 Td(adult) unspecified formulation 06/01/2013 completed EARNESTSA GRACE downs [facility] 06/26/2023 18:55:46 Past Encounters Encounter ID Performer Location Encounter Start Date Encounter Closed Date Diagnosis/Indication Diagnosis SNOMED-CT Code Diagnosis ICD10 Code Diagnosis Note [id number] Talita Sesay MD [facility] ([facility]) [address] [place] [address] 06/26/2023 16:45:13 06/26/2023 17:54:35 Essential hypertension 50271901 I10 Patient's blood pressure is significan tly elevated consistent with hypertensi on. Will start losartan since he was intolerant to lisinopril . Patient was encouraged to continue to check blood pressure regularly. Hypercholesterolemia 136 18175 E78.00 Check lipid panel today. Testostero ne level below reference range 363176861 R89.1 Check testostero ne level. If low then repeat with cathodic protection technician testostero ne to confirm diagnosis. Patient does not do well with injections and would either prefer to do gel or possibly pellet insertion. Chronic pain 77045405 G8 9.29 Patient sees methadone clinic and takes significan t amount of methadone daily. Anemia 392416261 D64.9 Continue iron. Check blood count Vitamin D deficiency 347 62205 E55.9 Check levels to ensure supplement ation is effective. Health Concerns Section Related Observation LastModified by Organization Detai ls LastModified Time None Recorded Concern Status LastModified by Organization Details LastModified Time None Recorded Advance Directives Directive N: Payers Insurance Date Sequence Insurance Name Policy Number Policy Vanegas Covered Member ID Vanegas Member ID Guarantor Name 07/22/2023 [place] - [facility] (MEDICARE) Arron Palomares [id number] Arron Palomares 07/22/2023 1 [place] Arron Palomares [id number] Arron Palomares Notes Date Note Type Note Provider Name and Address Organization Details Recorded Time 06/26/2023 text/html This is a 42-year-old gentleman that comes in today to establish care. She is here primarily to get lab work. Patient has had significant issues with his cholesterol especially his triglycerides. Is been taking fish oil and has made lifestyle modifications. Had low testosterone and has been on testosterone gel in the past. Patient has not been using medications. Patient has a history of high blood pressure and was previously on lisinopril but it was causing palpitations so he has stopped it approximately 3 weeks ago. States that the palpitations have improved, but the blood pressure is elevated. Patient states that he takes iron daily for iron deficiency anemia. He was also vitamin D deficient. Patient has had been on multiple medications in the past 2 help with his chronic medical issues but he has stopped them all except for his supplements Talita Sesay MD [address] [place] [address], [phone], [facility], Tony 06/26/2023 17:36:17
--- NOTE | 2024-12-27 13:21 | XRR_ITS ---
PROCEDURE INFORMATION: Exam: XR Lumbosacral Spine Exam date and time: 12/27/2024 1:45 PM Age: 44 years old Clinical indication: Pain; Lumbago with sciatica; Right; Additional info: Pain, lifting airconditioner unit TECHNIQUE: Imaging protocol: Radiologic exam of the lumbosacral spine. Views: 2 or 3 views. COMPARISON: CT kidney stone [id number] 12/10/2022 3:21 AM FINDINGS: Bones/joints: No fracture or other acute abnormality. There is mild lumbosacral disc space narrowing. Anterolateral hypertrophic changes are seen at L1 and L2 as well as at T12-L1. Posterior elements are unremarkable as visualized. Normal alignment. Soft tissues: Unremarkable. XR/XR lumbar spine 2-3V* [id number] IMPRESSION: Nonacute findings.
--- NOTE | 2024-12-27 13:26 | W.ED.BACK ---
HPI - Back Pain/Injury General: Chief Complaint: Back Pain/Injury Stated Complaint: low back pain Time Seen by Provider: 12/27/24 13:03 History of Present Illness: Patient is a 44-year-old gentleman with history of HTN, that was moving an air conditioner unit 6 days ago, and felt a pop in his low right back and pain. This radiates down from his back to his right hip and right lateral side to his knee. He states he has not had this issue before he has had to take multiple Tylenol's and ibuprofen and just feels sick from taking Tylenol and ibuprofen and the pain. It is not midline tenderness. His pain is the sacroiliac region of the left side. Associated symptoms: Deny abdominal pain, chills, fever(s), nausea or vomiting Related Data Home Medications ?Medication ?Instructions ?Recorded ?Confirmed methadone PO 02/23/21 07/18/22 omega 4-dhm-wnj-fish oil 300 1 cap PO BID 07/18/22 07/18/22 mg-1,000 mg capsule,delayed release (Fish Oil) Previous Rx's ?Medication ?Instructions ?Recorded cholecalciferol (vitamin D3) 1,250 50,000 unit PO .Weekly #8 caps 07/05/21 mcg (50,000 unit) capsule ferrous gluconate 324 mg (38 mg 324 mg PO DAILY #90 tabs 11/22/21 iron) tablet lisinopril 5 mg tablet 5 mg PO BID #180 tabs 02/12/22 testosterone (AndroGel) 2 pump topical DAILY #75 grams 09/04/22 fenofibrate nanocrystallized 48 mg See Rx Instructions .Route 10/22/22 tablet .COMPLEX #90 tabs hydrocodone 5 mg-acetaminophen 325 1 tab PO Q6H PRN pain #14 tabs 12/10/22 mg tablet ketorolac 10 mg tablet 10 mg PO Q8H PRN pain #6 tabs 12/10/22 ondansetron 4 mg disintegrating 4 mg PO Q6H PRN nausea and 12/10/22 tablet vomiting #14 tabs cyclobenzaprine 10 mg tablet 10 mg PO TID PRN muscle spasm #20 12/27/24 tabs methylprednisolone 4 mg tablets in See Rx Instructions PO .COMPLEX 12/27/24 a dose pack (Medrol (Jaswinder)) #21 ea Allergies Allergy/AdvReac Type Severity Reaction Status Date / Time clonidine Allergy ADR-Agitate Verified 12/27/24 11:59 d shrimp Allergy Unknown Verified 12/27/24 11:59 Review of Systems General: Reports: 10 or more systems reviewed and unremarkable except in HPI and below Const: Denies: fever(s) or chills Eyes: Denies: change in vision or blurry vision ENMT: Denies: throat pain or mouth pain Card: Denies: chest pain or palpitations Resp: Denies: dyspnea or productive cough GI: Denies: abdominal pain, nausea or vomiting : Denies: flank pain or difficulty urinating Musc: Reports: back pain, extremity pain, joint pain, joint stiffness and limited range of motion; Denies: neck pain, joint swelling, joint redness, joint warmth or decrease in muscle mass Skin/Breast: Denies: rash or pruritus Neuro: Denies: headache(s), numbness in extremities, weakness in extremities or sensory changes Psych: Denies: anxiety or depression PFSH ED PFSH: Medical History Anal fissure Essential (primary) hypertension H/O drug abuse 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 HTN (hypertension) with goal to be determined Hypogonadism in male Insomnia Surgical History S/P appendectomy S/P tonsillectomy Family History Mother Cancer Grandmother Diabetes Denies family history of CAD (coronary artery disease) Clotting disorder Dementia Hyperlipidemia Psychiatric illness Chronic kidney disease (CKD) Suicide Anesthesia complication Bleeding disorder Family history of premature coronary artery disease Lung disease Hypertension Stroke Social History Smoking and tobacco/nicotine status: current every day tobacco/nicotine user Alcohol intake: never Substance/Drug Use: never Adopted: No Lives independently: Yes Household members: spouse Housing: Other Details: 5th wheel Marital status: Physical Exam Const: COMMON NORMALS: no acute distress and patient oriented x3 HENMT: COMMON NORMALS: normocephalic and atraumatic HEAD & SCALP: normocephalic and atraumatic Neck/C-Spine: COMMON NORMALS: full ROM and no lymphadenopathy Resp: COMMON NORMALS: normal respiratory effort and clear to auscultation bilaterally AUSCULTATION: clear to auscultation bilaterally Cardio: COMMON NORMALS: regular rate and regular rhythm RATE: regular rate RHYTHM: regular rhythm GI: COMMON NORMALS: Normal to inspection, nondistended, normoactive bowel sounds present and Soft to palpation INSPECTION: Yes normal to inspection PALPATION: Yes Soft to palpation : COMMON NORMALS: Yes no CVA tenderness BLADDER/KIDNEY EXAM: Yes no CVA tenderness Back/Pelvis: COMMON NORMALS: no CVA tenderness LUMBAR SPINE/LOWER BACK: Yes normal to inspection, Yes lumbar ROM normal and Yes straight leg raise positive left Straight leg raise positive details left: at 60 degrees PELVIS: Yes buttocks normal and Yes sciatic notch tenderness on the right Extremity: COMMON NORMALS: normal to inspection and full ROM GENERAL: Yes normal exam except as noted Neuro: COMMON NORMALS: patient oriented x3 Psych: COMMON NORMALS: mental status grossly normal and Normal thought process present THOUGHT PROCESS: Normal thought process present Skin: COMMON NORMALS: no rashes or lesions noted and no wounds GENERAL SKIN EXAM: no rashes or lesions noted Course Vital Signs: Vital signs: Vital Signs Temperature 98.1 F 12/27/24 11:54 Pulse Rate 85 12/27/24 11:54 Blood Pressure 173/93 12/27/24 11:54 Pulse Oximetry 98 12/27/24 11:54 Oxygen Delivery Me thod Room Air 12/27/24 11:54 MDM - Back Pain/Injury Medical Decision Making Patient is a 44-year-old male with right-sided pain on sacroiliac crest that radiates to his leg/T band. I do suspect a sacroiliitis. Initial lumbar films are negative. Exam is consistent with sacroiliitis, however patient was insistent on radiological evidence. I have asked him to follow-up with his primary care advisor for referral. All of his questions were answered. Labs Radiology Impressions Lumbar Spine X-Ray 12/27/24 13:21 IMPRESSION: Nonacute findings. All radiology interpretation(s) finalized by discharge Discharge Plan Discharge Patient Disposition: Home Clinical Impression: Sacroiliitis Condition: Stable Prescriptions: New cyclobenzaprine 10 mg tablet 10 mg PO TID PRN (Reason: muscle spasm) Qty: 20 0RF methylprednisolone [Medrol (Jaswinder)] 4 mg tablets,dose pack See Rx Instructions .ROUTE .COMPLEX Qty: 21 0RF Rx Instructions: for 6 days No Action methadone 150 mg wafer PO cholecalciferol (vitamin D3) 1,250 mcg (50,000 unit) capsule 50,000 unit PO .Weekly Qty: 8 0RF lisinopril 5 mg tablet 5 mg PO BID Qty: 180 1RF omega 4-zrk-acn-fish oil [Fish Oil] 300-1,000 mg capsule,delayed release(DR/EC) 1 cap PO BID ferrous gluconate 324 mg (38 mg iron) tablet 324 mg PO DAILY Qty: 90 0RF Rx Instructions: 340 B testosterone [AndroGel] 20.25 mg/1.25 gram (1.62 %) gel in metered-dose pump 2 pump topical DAILY Qty: 75 0RF Rx Instructions: apply 1 pump amount over max area of EACH upper arm and shoulder 340 B if needed. fenofibrate nanocrystallized 48 mg tablet See Rx Instructions .ROUTE .COMPLEX Qty: 90 0RF Dose Instruction: TAKE ONE TABLET BY MOUTH EVERY DAY Rx Instructions: TAKE ONE TABLET BY MOUTH EVERY DAY hydrocodone-acetaminophen 5-325 mg tablet 1 tab PO Q6H PRN (Reason: pain) Qty: 14 0RF ondansetron 4 mg tablet,disintegrating 4 mg PO Q6H PRN (Reason: nausea and vomiting) Qty: 14 0RF ketorolac 10 mg tablet 10 mg PO Q8H PRN (Reason: pain) Qty: 6 0RF Discharge Orders: Discharge ED (Routine); Ordered 12/27/24 Ordered By: Ashleigh Riggs Referrals: Trevor Sesay MD [Primary Care Provider, Family Practice] Discharge Diet: Usual diet Discharge Activity: Use walker/crutches as instructed Patient Instructions: Patient Portal & [place] Instructions, Sacroiliitis (ED) Activity Restrictions/Additional Instructions: Continue utilizing the cane for safety Follow-up with your doctor for referral. Muscle relaxer at pharmacy, caution on sedation effects Medrol Dosepak as well for the inflammatory changes in this joint. Continue your gabapentin 300 mg at night, which may increase to 600 mg tomorrow at night. You will need to follow-up with your doctor about this visit today. Call in the morning for an appointment this week Return to ED for worsening pain, fever Print Language: Japanese Coding Level of Care Code ED [employer] for Rosalie Eddy
[2024-12-27] MEDS: pantoprazole DR 40 mg Tablet PO (13:31)
[2024-12-27] MEDS: ketorolac 30 mg/mL INJ 15 MG IM (13:31)
[2024-12-27] MEDS: orphenadrine 30 mg/mL Inj 2 mL 60 MG IM (13:32)
[2024-12-27 15:49] VITALS: BP 159/93; PULSE 87; O2SAT 99
== END 2024-12-27 15:50 | disposition home or self-care (01) ==
PROVIDERS: Emergency Provider Physician Assistant; PCP Family Medicine
DX: M46.1 Sacroiliitis, not elsewhere classified (principal); I10 Essential (primary) hypertension; Z72.0 Tobacco use
CPT/HCPCS: 72100; 96372; 99284; J1885; J2360; J9999

== ENCOUNTER 2025-05-25 21:44 | Emergency (ER) | payer MEDICARE, SELFPAY ==
--- OUTSIDE RECORDS SUMMARY | 2025-05-25 21:51 | XMS_ITS | Data Portability ---
Author Organization [facility] Tony Peace [facility] Address [address] [address] Care Team Providers Care Plastic Fabricator Name Role Phone TALITA SESAY Primary Care Provider Assessment No assessment recorded. Plan of Treatment Reminders Order Date Submit Date Provider Last Modified By Organization Details Last Modified Time Details Appointments None recorded. Lab vitamin D, 25-hydroxy , total, serum 2022 023 [place] [place] [facility], [address], [place], [address], 06:01:36 lipid panel, blood 2022 023 [place] [facility], [address] [facility], [facility], [place], [address], 3 09:38:17 CMP, serum or plasma 2022 023 [place] [facility], [address] [facility], [facility], [place], [address], 3 09:38:15 CBC 2022 023 [place] [facility], [address] [facility], [facility], [place], [address], 3 17:45:39 testostero ne, total, serum 2022 023 [place] [facility], [address], [address], [place], [address], 06:01:35 Referral None recorded. Procedures None recorded. Surgeries None recorded. Imaging None recorded. Medication Orders losartan 25 mg tablet 2022 023 [facility], [address], [place], [address], 17:14:57 Patient TargetsNo targets recorded. Patient InstructionsNo instructions recorded. Reason for Referral None Reported. Results Created Date Observation Date Name Description Value Unit Range Abnormal Flag Note LastModifiedBy Organization Detail LastModifiedTime 06/26/2006/26/2023 CBC WBC 10.7 x10 4.5-10 .5 high Not Available [facility] [address] [facility], [place], [address], 06/26/2023 17:45:39 06/26/20 23 06/26/2023 CBC RBC 5.37 x10 4.30-5 .90 Not Available [facility] [address] [place] [facility], [place], [address], 06/26/2023 17:45:39 06/26/20 23 06/26/2023 CBC HGB 15.4 g/dL 13.5-1 8.0 Not Available [facility] [address] [facility], [place], [address], 06/26/2023 17:45:39 06/26/20 23 06/26/2023 CBC HCT 46.0 % 35.0-6 0.0 Not Available [facility] [address] [facility], [place], [address], 06/26/2023 17:45:39 06/26/20 23 06/26/2023 CBC MCV 85.6 fL 80.0-9 9.9 Not Available [facility] [address] [facility], [place], [address], 06/26/2023 17:45:39 06/26/20 23 06/26/2023 CBC MCH 28.7 pg 27.0-3 2.0 Not Available [facility] [address] [facility], [place], [address], 06/26/2023 17:45:39 06/26/20 23 06/26/2023 CBC MCHC 33.5 g/dL 32.0-3 6.0 Not Available [facility] [address] [facility], [place], [address], 06/26/2023 17:45:39 06/26/20 23 06/26/2023 CBC RDW 14.5 % 11.5-1 4.5 Not Available [facility] [address] [facility], [place], [address], 06/26/2023 17:45:39 06/26/20 23 06/26/2023 CBC plt 199.0 x10 150.0- 451.0 Not Available [facility] [address] [facility], [place], [address], 06/26/2023 17:45:39 06/26/20 23 06/26/2023 CBC lymphocytes % 31.5 % 20.0-5 0.0 Not Available [facility] [address] [facility], [place], [address], 06/26/2023 17:45:39 06/26/20 23 06/26/2023 CBC granulcytes % 58.1 % 30.0-7 0.0 Not Available [facility] [address] [facility], [place], [address], 06/26/2023 17:45:39 06/26/20 23 06/26/2023 CBC monocytes % 6.9 % 2.0-10 .0 Not Available [facility] [address] [facility] [address], [place], [address], 06/26/2023 17:45:39 06/26/20 23 06/26/2023 CBC granulcytes# 6.2 x10 Not Elizabeth ilable [facility] [address] [facility] [address], [place], [address], 06/26/2023 17:45:39 06/26/20 23 06/26/2023 CBC lymphocytes # 3.4 x10 Not Available [place] [facility] [address] [facility] [address], [place], [address], 06/26/2023 17:45:39 06/26/2006/26/2023 CBC monocytes # 0.7 x10 Not Avai lable [facility] [address] [facility], [place], [address], 06/26/2023 17:45:39 06/26/20 23 06/27/2023 CMP (MALE ) glucose 90.0 mg/dL 60.0-9 9.0 Not Available [place] [facility] [address] [facility], [place], [address], 06/27/2023 09:38:15 06/26/20 23 06/27/2023 CMP (MALE ) BUN (blood urea nitrogen) 13.0 mg/dL 10.0-2 6.0 Not Available [place] [facility] [address] [facility], [place], [address], 06/27/2023 09:38:15 06/26/2006/27/2023 CMP (MALE ) creatinine (serum) 1.1 mg/dL 0.4-1. 5 Not Available [facility] [address] [facility], [place], [address], 06/27/2023 09:38:15 06/26/2022 0606/27/2023 CMP (MALE ) BUN/creatini ne ratio 11.82 ratio Not Available [facility] [address] [facility], [place], [address], 06/27/2023 09:38:15 06/26/20 23 06/27/2023 CMP (MALE ) eGFR calculated 77.7 Not Available [facility] [address] [facility], [place], [address], 06/27/2023 09:38:15 06/26/20 23 06/27/2023 CMP (MALE ) total protein 7.6 g/dL 6.0-8. 5 Not Available [facility] [address] [facility], [place], [address], 06/27/2023 09:38:15 06/26/20 23 06/27/2023 CMP (MALE ) total bilirubin 0.3 mg/dL 0.2-1. 3 Not Available [facility] [address] [facility], [place], [address], 06/27/2023 09:38:15 06/26/20 23 06/27/2023 CMP (MALE ) albumin 4.3 g/dL 3.5-5. 5 Not Available [facility] [address] [facility], [place], [address], 06/27/2023 09:38:15 06/26/20 23 06/27/2023 CMP (MALE ) globulin 3.3 calc Not Available [facility] [address] [facility], [place], [address], 06/27/2023 09:38:15 06/26/20 23 06/27/2023 CMP (MALE ) AST (SGOT) 38.0 U/L 0.0-46 .0 Not Available [facility] [address] [facility], [place], [address], 06/27/2023 09:38:15 06/26/20 23 06/27/2023 CMP (MALE ) altv (SGPT) 49.0 U/L 13.0-6 9.0 normal Not Available [facility] [address] [facility] [address], [place], [address], 06/27/2023 09:38:15 06/26/20 23 06/27/2023 CMP (MALE ) A/G ratio 1.3 ratio Not Available [facility] [address], [place], [address], 06/27/2023 09:38:15 06/26/20 23 06/27/2023 CMP (MALE ) ALP phos 55.0 U/L 30.0-1 40.0 normal Not Available [facility] [address] [facility], [place], [address], 06/27/2023 09:38:15 06/26/20 23 06/27/2023 CMP (MALE ) calcium 8.8 mg/dL 8.4-10 .5 Not Available [facility] [address] [facility], [place], [address], 06/27/2023 09:38:15 06/26/20 23 06/27/2023 CMP (MALE ) sodium 138.0 mmol/ L 136.0- 145.0 Not Available [facility] [address] [facility], [place], [address], 06/27/2023 09:38:15 06/26/20 23 06/27/2023 CMP (MALE ) potassium 4.1 mmol/ L 3.5-5. 1 Not Available [facility] [address] [facility], [place], [address], 06/27/2023 09:38:15 06/26/20 23 06/27/2023 CMP (MALE ) chloride 101.0 mmol/ L 98.0-1 10.0 normal Not Available [facility] [address] [facility], [place], [address], 06/27/2023 09:38:15 06/26/20 23 06/27/2023 CMP (MALE ) C02 28.0 mmol/ L 22.0-3 1.0 Not Available [facility] [address] [facility], [place], [address], 06/27/2023 09:38:15 06/26/20 23 06/27/2023 CMP (MALE ) anion gap 9.0 calc Not Available [facility] [address] [facility], [place], [address], 06/27/2023 09:38:15 06/26/20 23 06/27/2023 CMP (MALE ) osmolality 284.8 calc Not Available [facility] [address] [facility], [place], [address], 06/27/2023 09:38:15 06/26/20 23 06/27/2023 LIPID PROFI LE (MALE ) cholesterol 217.0 mg/dL 0.0-20 0.0 high Not Available [facility] [address] [facility], [place], [address], 06/27/2023 09:38:17 06/26/20 23 06/27/2023 LIPID PROFI LE (MALE ) trig 575.0 mg/dL 0.0-15 0.0 high Not Available [facility] [address] [facility], [place], [address], 06/27/2023 09:38:17 06/26/20 23 06/27/2023 LIPID PROFI LE (MALE ) HDL - direct 23.0 mg/dL >40.0 low Not Available [place] [facility] [address] [facility], [place], [address], 06/27/2023 09:38:17 06/26/20 23 06/27/2023 LIPID PROFI LE (MALE ) VLDL - direct 115.0 mg/dL Not Available [facility] [address] [facility], [place], [address], 06/27/2023 09:38:17 06/26/20 23 06/27/2023 LIPID PROFI LE (MALE ) LDL - direct 79.0 mg/dL 0.0-13 0.0 Not Available [facility] [address] [facility], [place], [address], 06/27/2023 09:38:17 06/26/20 23 06/28/2023 TESTO STERO [...] op tube with no gel. Not Available [facility] [address], [place], [address], 06/28/2023 06:01:35 06/26/2006/28/2023 VITAM IN D,25- [place],TO [...] /MS is recom jaja d: order code 66891 (ramon ents >2yrs ). See Note 1 Note 1 For addit ional infor christine griffin refer to http: //niesha Blanco stDia gnost ics.c om/fa q/FAQ 199 (This link is being provi ded for infor rosalino ba/ educcameron joseph purpo ses only. ) Not Available [facility] [address] [place], [address], 06/28/2023 06:01:36 Result Notes None recorded. Problems Name Problem SNOMED Code Status Onset Date Resolution Date Notes Provider Name and Address Organization Details Recorded Time Anxiety state 456653828 Completed 201803/05/2019 Anxiety Disorder - Status is Inactive ; 03/05/20 1:29PM by Renetta Ayala CMT, Annotati on/Adden dum; Promoted ; acuity set as *; Not Available [facility] 3 03:08:16 Hyperten sive disorder 91214704 Completed 201803/05/2019 Hyperten skylar - Status is Inactive ; 03/05/20 1:29PM by Renetta Ayala CMT, Annotati on/Adden dum; Promoted ; acuity set as *; Not Available [facility] 3 03:08:16 Depressi ve disorder 53294546 Completed 201803/05/2019 depressi on - Status is Inactive ; 03/05/20 1:29PM by Renetta Ayala CMT, Annotati on/Adden dum; Promoted ; acuity set as *; Not Available [facility] 3 03:08:17 Insomnia 157951376 Completed 201803/05/2019 Insomnia - Status is Inactive ; 03/05/20 1:29PM by Renetta Ayala CMT, Annotati on/Adden dum; Promoted ; acuity set as *; INSOMNI A; Recorded 03/05/20 1:48PM by IRIS Headley, Office Visit; Promoted ; acuity set as *; Not Available [facility] 3 03:08:17 Tonsille ctomy Completed 201803/05/2019 Tonsilli s removed - Status is Inactive ; 03/05/20 1:28PM by Renetta Ayala CMT, Annotati on/Adden dum; Promoted ; acuity set as *; Not Available [facility] 3 03:08:17 Chronic back pain 535382268 Completed 201803/05/2019 Chronic back problems do to machine injury - Status is Inactive ; 03/05/20 19 1:29PM by Renetta Ayala CMT, Annotati on/Adden dum; Promoted ; acuity set as *; Not Available [facility] 3 03:08:17 Acute back pain with sciatica 681111849 Active 2018 CHRONIC BILATERA L LOW BACK PAIN WITH BILATERA L SCIATICA Leidy downs [facility] 4 19:04:58 Chronic pain 91865153 Active 2022 EARNEST downs [facility] 3 16:54:01 Hypercho lesterol emia 47542107 Active 2022 EARNEST downs [facility] 3 16:54:22 [facility] hyperten skylar 73941695 Active 2022 EARNEST downs [facility] 3 16:54:37 Testoste johanna level below referenc e range 333551544 Active 2022 EARNEST downs [facility] 3 16:55:10 Anemia 274112242 Active 2022 Talita Sesay MD [address] [place] [address], [address] , [facility] 3 17:13:27 Vitamin D deficien 57632827 Active 2022 Talita Sesay MD [address] [place], [address] , [facility]CJosé Luis 3 17:15:21 Problem Notes None recorded. Procedures Surgical History Date Name Laterality Status Provider Name and Address Organization Details Recorded Time Appendectomy completed [facility] 06/26/2023 16:57:47 Tonsillectomy completed [facility] Luis 06/26/2023 16:57:54 graft of skin to skin completed [facility] Luis 06/26/2023 16:58:32 Imaging Results None recorded. Procedure Notes None recorded. Medical Equipment None Reported. Allergies Allergen ID Allergen Name Allergen Category Reaction Reaction Severity Criticality Documentation Date Start Date Code Code System Note Provider Name and Address Organization Details Recorded Time 17243 varenicli ne tartrate medicatio n rash mild low 01/26/2023 41662 4 RxNorm Leidy Plraissa Sharp [facility] L[facility]CJosé Luis 4 19:04:52 63976 iodine medicatio n Not available Not available Not available 01/26/2023 5933 RxNorm Comme nt: Recor ded 03/05 1:28P M by Connor gillespie CMT, Offic e Visit ; Akosua willis ce: *; ; [facility] Luis 3 16:50:26 Medications Name Sig Start Date Stop Date Status Note LastModified by Organization Details LastModified Time amoxicill in 500 mg capsule TAKE 1 CAPSULE BY MOUTH THREE TIMES DAILY UNTIL GONE active Not Available Not Available No t Available triazolam 0.25 mg tablet TAKE 1 TABLET BY MOUTH one hour before appointm ent. bring other TO appointm ent. 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 2024 active Not Available Not Available Not [...] weight Body temperature Heart rate Oxygen saturation Systolic And Diastolic Provider Name and Address Organization Details Last Updated DateTime 3 20 /min 177.8 cm 37 kg/m2 271386. 53 g 97.8 [degF] 77 /min 97 % 172/90 mm[Hg] EARNEST EDWARDS [facility] 17:03:04 Social History Question Answer Notes LastModified by Organizat ion Details LastModified Time Tobacco Smoking Status Current Every Day Smoker EARNEST downs [facility] 06/26/2023 16:59:32 Do You Have [...] Or The Highest Degree You Have Received? ON32400-5 Information not available 06/26/2023 Which Of Your [...] not available 06/26/2023 Are you able to walk independently without assistance or assistive devices? YESWOREST Information not available 06/26/2023 Are you able to care for yourself independently? Yes Information not available 06/26/2023 Do you have difficulty dressing, bathing, grooming, or toileting? No Information not available 06/26/2023 What is your exercise level? None Information not available 06/26/2023 Mental Status Question Answer Note LastModified by Organizat ion Details LastModified Time Do you feel stressed (tense, restless, nervous, or anxious, or unable to sleep at night)? [id number] Information not available 06/26/2023 Do you have difficulty concentrating, remembering or making decisions? No Information no t available 06/26/2023 Family History Nothing Reported. Medical History No medical history recorded. Immunizations Vaccine Type Date Status Note Provider Nam e and Address Organization Details Recorded Time Tdap 12/02/2016 completed EARNEST EDWARDS null, [facility] 06/26/2023 18:55:46 Td(adult) unspecified formulation 06/01/2013 completed EARNEST MCCONNELLEllie downs [facility] 06/26/2023 18:55:46 Past Encounters Encounter ID Performer Location Encounter Start Date Encounter Closed Date Diagnosis/Indication Diagnosis SNOMED-CT Code Diagnosis ICD10 Code Diagnosis IMO Codes Diagnosis Note [id number] Talita Sesay MD [facility] ([facility]) [address] [place] [address] 06/26/2023 16:45:13 06/26/2023 17:54:35 Essential hypertension 44987262 I10 Patient's blood pressure is significan tly elevated consistent with hypertensi on. Will start losartan since he was intolerant to lisinopril . Patient was encouraged to continue to check blood pressure regularly. Hypercholesterolemia 136 92360 E78.00 Check lipid panel today. Testostero ne level below reference range 547289201 R89.1 Check testostero ne level. If low then repeat with development mechanic testostero ne to confirm diagnosis. Patient does not do well with injections and would either prefer to do gel or possibly pellet insertion. Chronic pain 72299037 G8 9.29 Patient sees methadone clinic and takes significan t amount of methadone daily. Anemia 137747139 D64.9 Continue iron. Check blood count Vitamin D deficiency 347 33856 E55.9 Check levels to ensure supplement ation is effective. Health Concerns Section Related Observation LastModified by Organization Detai ls LastModified Time None Recorded Concern Status LastModified by Organization Details LastModified Time None Recorded Advance Directives Directive N: Payers Insurance Date Sequence Insurance Name Policy Number Policy Vanegas Covered Member ID Vanegas Member ID Guarantor Name 07/22/2023 [place] - [facility] (MEDICARE) Arron Palomares [id number] Arron Palomares 07/22/2023 1 [place] [employer] Arron Palomares [id number] Arron Palomares Notes Date Note Type [...] except for his supplements Talita Sesay MD [address] [place] [address], [phone], [facility] 06/26/2023 17:36:17
--- NOTE | 2025-05-25 22:03 | XRR_ITS ---
PROCEDURE INFORMATION: Exam: XR Chest Exam date and time: 05/25/2025 10:17 PM Age: 44 years old Clinical indication: Shortness of breath; Additional info: Dyspnea/cough TECHNIQUE: Imaging protocol: Radiologic exam of the chest. Views: 1 view. COMPARISON: CR XR chest 2V* [id number] 12/10/2022 3:07 PM FINDINGS: Lungs: Unremarkable. No consolidation. Pleural spaces: Unremarkable. No pleural effusion. No pneumothorax. Heart/Mediastinum: Unremarkable. No cardiomegaly. Bones/joints: Unremarkable. XR/XR chest 1V portable [id number] IMPRESSION: No acute findings.
--- NOTE | 2025-05-25 22:03 | ECG_ITS ---
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 Measurements Intervals [place] Rate: 101 P: 46 CA: 153 QRS: 16 QRSD: 94 T: 45 QT: 278 QTc: 361 Interpretive Statements SINUS TACHYCARDIA NONSPECIFIC T-WAVE ABNORMALITY ABNORMAL RHYTHM ECG Compared to ECG 03/25/2017 22:22:21 T-wave abnormality now present Sinus rhythm no longer present Sinus arrhythmia no longer present Electronically Signed On 05-27-2025 17:43:33 CHIEF II DISPATCHER by Mary Fulton M.D. [email or web address]
[2025-05-25 22:11] VITALS: BP 169/95; PULSE 91; RESP 18; TEMP 36.6; O2SAT 99; BMI 36.6
[2025-05-25 22:15] VITALS: BP 169/95; PULSE 91; RESP 18; TEMP 36.6; O2SAT 99
[2025-05-25] MEDS: diphenhydrAMINE 50 mg/mL SDV 1mL IVP (22:30)
[2025-05-25] MEDS: methylPREDNISolone sod succ 125 mg/2 mL INJ IVP (22:30)
--- NOTE | 2025-05-25 22:35 | ED_ITS ---
HPI - Chest Pain 2 General: Chief Complaint: Chest Pain Stated Complaint: Possible Allergic Reaction\SOB Time Seen by Provider: 05/25/25 22:35 History of Present Illness: Patient is 44-year-old male, presents to the emergency room today with quick elevation of blood pressure, chest discomfort as a pressure, radiating to his left wrist, and head pressure. Patient noted his blood pressure was elevated. He is on losartan 25 mg daily for his hypertension. He took another half of this. He took a warm shower. The warm showers seem to make it worse. Patient consumed a magnesium gluconate gummy, and he was afraid that this was interacting with his methadone. He stated he tried multiple things, however saw as a head pressure. Chest pressure is gone. Chest pressure started somewhere around 1999. He states that he just has not felt quite right all day. He admits to anxiety as a baseline. is by his side. No previous cardiac workup. Associated symptoms: Reports palpitations; Deny abdominal pain, dyspnea, fever(s), nausea or vomiting Related Data Home Medications ?Medication ?Instructions ?Recorded ?Confirmed methadone PO 02/23/21 07/18/22 omega 5-vop-zvp-fish oil 300 1 cap PO BID 07/18/22 mg-1,000 mg capsule,delayed release (Fish Oil) Previous Rx's ?Medication ?Instructions ?Recorded cholecalciferol (vitamin D3) 1,250 50,000 unit PO .Saniya muñoz #8 caps 07/05/21 mcg (50,000 unit) capsule ferrous gluconate 324 mg (38 mg 324 mg PO DAILY #90 ta bs 11/22/21 iron) tablet lisinopril 5 mg tablet 5 mg PO BID #180 tabs testosterone (AndroGel) 2 pump topical DAILY #75 gra ms 09/04/22 fenofibrate nanocrystallized 48 mg See Rx Instructions .Route 10/22/22 tablet .COMPLEX #90 tabs hydrocodone 5 mg-acetaminophen 325 1 tab PO Q6H PRN pa in #14 tabs 12/10/22 mg tablet ketorolac 10 mg tablet 10 mg PO Q8H PRN pain #6 tab s 12/10/22 ondansetron 4 mg disintegrating 4 mg PO Q6H PRN nausea and 12/10/22 tablet vomiting #14 tabs cyclobenzaprine 10 mg tablet 10 mg PO TID PRN muscle s pasm #20 12/27/24 tabs methylprednisolone 4 mg tablets in See Rx Instructions PO .COMPLEX 12/27/24 a dose pack (Medrol (Jaswinder)) #21 ea Allergies Allergy/AdvReac Type Severity Reaction Status Date / Time clonidine Allergy ADR-Agitate Verified 12/27/24 11:59 d shrimp Allergy Unknown Verified 12/27/24 11:59 Review of Systems 2 General: Reports: 10 or more systems reviewed and unremarkable except in HPI and below Const: Denies: fever(s) or chills Eyes: Denies: change in vision or blurry vision ENMT: Denies: throat pain or mouth pain Card: Reports: chest pain and palpitations Resp: Denies: dyspnea or productive cough GI: Denies: abdominal pain, nausea or vomiting : Denies: flank pain or difficulty urinating Musc: Reports: back pain (chronic); Denies: neck pain, joint swelling, joint redness, joint warmth or decrease in muscle mass Skin/Breast: Denies: rash or pruritus Neuro: Reports: headache(s); Denies: numbness in extremities, weakness in extremities or sensory changes Psych: Denies: anxiety or depression PFSH ED 2 PFSH: Medical History (Updated 05/26/25 @ 00:11 by KRISTEN Wolfe) Essential (primary) hypertension Hypogonadism in male Anal fissure H/O drug abuse HTN (hypertension) with goal to be determined Insomnia Surgical History S/P tonsillectomy S/P appendectomy 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 Family History Mother Cancer Grandmother Diabetes Denies family history of CAD (coronary artery disease) Clotting disorder Dementia Hyperlipidemia Psychiatric illness Chronic kidney disease (CKD) Suicide Anesthesia complication Bleeding disorder Family history of premature coronary artery disease Lung disease Hypertension Stroke Social History Smoking and tobacco/nicotine status: current every day tobacco/nicotine user Alcohol intake: never Substance/Drug Use: never Adopted: No Lives independently: Yes Household members: spouse Housing: Other Details: 5th wheel Marital status: Physical Exam 2 Const: COMMON NORMALS: no acute distress and patient oriented x3 HENMT: COMMON NORMALS: normocephalic and atraumatic HEAD & SCALP: n ormocephalic and atraumatic Neck/C-Spine: COMMON NORMALS: full ROM and no lymphadenopathy Resp: COMMON NORMALS: normal respiratory effort and clear to auscultation bilaterally AUSCULTATION: clear to auscultation bilaterally Cardio: COMMON NORMALS: regular rate and regular rhythm RATE: regular rate RHYTHM: regular rhythm GI: COMMON NORMALS: Normal to inspection, nondistended, normoactive bowel sounds present and Soft to palpation INSPECTION: Yes normal to inspection PALPATION: Yes Soft to palpation : COMMON NORMALS: Yes no CVA tenderness BLADDER/KIDNEY EXAM: Yes no CVA tenderness Back/Pelvis: COMMON NORMALS: no CVA tenderness LUMBAR SPINE/LOWER BACK: Yes normal to inspection and Yes lumbar ROM normal Extremity: COMMON NORMALS: normal to inspection and full ROM GENERAL: Yes normal exam except as noted Neuro: COMMON NORMALS: patient oriented x3 Psych: COMMON NORMALS: mental status grossly normal and Normal thought process present THOUGHT PROCESS: Normal thought process present Skin: COMMON NORMALS: no rashes or lesions noted and no wounds GENERAL SKIN EXAM: no rashes or lesions noted Course 2 Vital Signs: Vital signs: Vital Signs Temperature 98 F 05/25/25 22:15 Pulse Rate 96 05/25/25 23:50 Respiratory Rate 18 05/25/25 22:15 Blood Pressure 154/105 05/25/25 23:50 Pulse Oximetry 94 05/25/25 23:50 Oxygen Delivery Me thod Room Air 05/25/25 23:30 MDM - Chest Pain Medical Decision Making Patient is a 44-year-old male, transient chest pain, shortness of breath, anxiety, headache, and elevation of blood pressure. His chest pain is now gone, and he has a headache. Initially there was concern of allergic reaction, with magnesium gluconate and methadone, and therefore Benadryl, Solu-Medrol were given. Given the fact that he had chest pain, although transient, will obtain a cardiac workup, give aspirin, and further assess. Initial chest x-ray was compared to previous, that shows no acute findings. After discussion with patient and , he believes that his symptoms are related to his blood pressure. We discussed blood pressure control, and that we typically do not correct in the hospital setting. Given his symptoms, heart rate running in the 100, and elevated blood pressure, typically I utilize clonidine. Unfortunately, his doctor has tried clonidine in the past, and it is caused agitation/side effect with his methadone. He has an intolerance to multiple medications. With this concern, we discussed not utilizing his alcohol. He is matilde take a losartan x 1, go home and rest, and follow-up with his doctor. All of him and his 's questions were answered to their satisfaction. Medical Records I reviewed the patient's medical records. Lab Data I reviewed the patient's lab results. 05/25/25 22:25 05/25/25: Radiology Impressions Chest X-Ray 05/25/25 22: IMPRESSION: No acute findings. Laboratory Results WBC 11.61 10^3/uL (3.29-11.43) H 05/25/25: RBC 5.39 10^6/uL (3.85-5.65) 05/25/25: Hgb 14.80 g/dL (11.27-16.99) 05/25/25: Hct 44.4 % (37-53) 05/25/25: MCV 82.4 fl (82-101) 05/25/25: MCH 27.5 pg (27-33) 05/25/25: MCHC 33.3 g/dL (30-55) 05/25/25: RDW 12.8 % (12.1-15.1) 05/25/25: Plt Count 219 10^3/cmm (157-399) 05/25/25: MPV 11.2 fL (7.4-10.4) H 05/25/25: Neut % (Auto) 79.7 % 05/25/25: Lymph % (Auto) 12.5 % 05/25/25: [place] % (Auto) 6.1 % 05/25/25: Eos % (Auto) 0.8 % 05/25/25: Baso % (Auto) 0.3 % 05/25/25: Neut # (Auto) 9.25 10^3/uL (1.8-7.7) H 05/25/25: Lymph # (Auto) 1.5 10^3/uL (0.8-4.8) 05/25/25: [place] # (Auto) 0.7 10^3/uL (0.2-0.9) 05/25/25: Eos # (Auto) 0.1 10^3/uL (0.0-0.8) 05/25/25: Baso # (Auto) 0.0 10^3/uL (0.0-0.1) 05/25/25: Nucleated RBC % (auto) 0 % 05/25/25: Nucleated RBCs # 0.0 /100WBC 05/25/25: Sodium 136 mmol/L (136-145) 05/25/25: Potassium 4.1 mmol/L (3.5-5.1) 05/25/25: Chloride 96 mmol/L (98-107) L 05/25/25: Carbon Dioxide 28 mmol/L (22-29) 05/25/25: Anion Gap 16.1 (5-19) 05/25/25: BUN 12 mg/dL (6-20) 05/25/25: Creatinine 0.9 mg/dL (0.7-1.2) 05/25/25: GFR Calculation 91.3 mL/min (90-130) 05/25/25: Glucose 99 mg/dL (65-115) 05/25/25: Calculated Osmolality 282 mOsm/kg (285-295) L 05/25/25: Calcium 9.0 mg/dL (8.5-10.5) 05/25/25: Total Bilirubin 0.2 mg/dL (0.15-1.2) 05/25/25: AST 22 U/L (0-40) 05/25/25: ALT 22 U/L (0-41) 05/25/25: Alkaline Phosphatase 63 U/L (40-130) 05/25/25 22: Troponin T Baseline 7 ng/L (0-15) 05/25/25: NT-Pro-B Natriuret Pep < 36 pg/mL (0-125) 05/25/25 22:25 Total Protein 7.1 g/dL (6.6-8.7) 05/25/25 22:25 Albumin 4.7 g/dL (3.5-5.2) 05/25/25 22:25 Globulin 2.4 g/dL (1.3-4.6) 05/25/25 22:25 Lipase 8 U/L (13-60) L 05/25/25 22:25 XR interpretation done by ED provider, pending radiology final review ED provider radiology interpretation(s): No acute findings. Compared to 12/11/2022 EKG Data EKG 1: Interpretation: Normal sinus rhythm Discharge Plan Discharge Patient Disposition: Home Clinical Impression: Non-cardiac chest pain, Hypertension, uncontrolled Condition: Stable Prescriptions: No Action methadone 150 mg wafer PO cholecalciferol (vitamin D3) 1,250 mcg (50,000 unit) capsule 50,000 unit PO .Weekly Qty: 8 0RF lisinopril 5 mg tablet 5 mg PO BID Qty: 180 1RF omega 5-ryu-pst-fish oil [Fish Oil] 300-1,000 mg capsule,delayed release(DR/EC) 1 cap PO BID ferrous gluconate 324 mg (38 mg iron) tablet 324 mg PO DAILY Qty: 90 0RF Rx Instructions: 340 B testosterone [AndroGel] 20.25 mg/1.25 gram (1.62 %) gel in metered-dose pump 2 pump topical DAILY Qty: 75 0RF Rx Instructions: apply 1 pump amount over max area of EACH upper arm and shoulder 340 B if needed. fenofibrate nanocrystallized 48 mg tablet See Rx Instructions .ROUTE .COMPLEX Qty: 90 0RF Dose Instruction: TAKE ONE TABLET BY MOUTH EVERY DAY Rx Instructions: TAKE ONE TABLET BY MOUTH EVERY DAY hydrocodone-acetaminophen 5-325 mg tablet 1 tab PO Q6H PRN (Reason: pain) Qty: 14 0RF ondansetron 4 mg tablet,disintegrating 4 mg PO Q6H PRN (Reason: nausea and vomiting) Qty: 14 0RF ketorolac 10 mg tablet 10 mg PO Q8H PRN (Reason: pain) Qty: 6 0RF cyclobenzaprine 10 mg tablet 10 mg PO TID PRN (Reason: muscle spasm) Qty: 20 0RF methylprednisolone [Medrol (Jaswinder)] 4 mg tablets,dose pack See Rx Instructions .ROUTE .COMPLEX Qty: 21 0RF Rx Instructions: for 6 days Discharge Orders: Discharge ED (Routine); Ordered 05/25/25 Ordered By: Ashleigh Riggs Referrals: Trevor Sesay MD [Primary Care Provider, Family Practice] Discharge Diet: Low Salt Discharge Activity: Resume usual activity Patient Instructions: DASH Eating Plan (ED), Noncardiac Chest Pain (ED), Patient Portal & [place] Instructions Activity Restrictions/Additional Instructions: - Follow-up with your primary care physician regarding today's visit. - You and your primary care physician, may discuss visiting with cardiology and having a stress test, possibly or echocardiogram. - Return to ED if you have chest discomfort again. - Take your magnesium at night - Follow a low-salt diet. Thank you for choosing [facility] for your healthcare needs today. You have been screened and evaluated and felt safe for discharge. Health conditions do change or evolve sometimes and as such it is important that you follow up with your Primary Doctor to be re checked, 3-5 days is a general good time frame for follow up. You are always welcome to return to the ED for re assessment if your symptoms are worsening or you have new concerns Print Language: Armenian Coding Level of Care Code ED [employer] Assistant Manager for Chg Fwd Heart Score HEART Score Components History: Slightly Suspicous EKG: Normal Age: Less than 45 yrs Risk Factors: 1 or 2 Risk Factors Troponin: Baseline Trop <16 ng/L HEART Score RESULT HEART Score: 1
[2025-05-25 23:04] LABS: Hematocrit 44.4 % (37-53); Hemoglobin 14.80 g/dL (11.27-16.99); Mean Corpuscular HGB Conc 33.3 g/dL (30-55); Mean Corpuscular Hemoglobin 27.5 pg (27-33); Mean Corpuscular Volume 82.4 fl (82-101); Nucleated Red Blood Cells % 0 %; Platelet Count 219 10^3/cmm (157-399); Red Blood Count 5.39 10^6/uL (3.85-5.65); White Blood Count 11.61 10^3/uL (3.29-11.43)
[2025-05-25 23:15] VITALS: BP 148/80; PULSE 112; O2SAT 92
[2025-05-25 23:19] LABS: Troponin(5th) Baseline 7 ng/L (0-15)
[2025-05-25 23:28] LABS: Alanine Aminotransferase 22 U/L (0-41); Albumin Level 4.7 g/dL (3.5-5.2); Alkaline Phosphatase 63 U/L (40-130); Anion Gap 16.1 (5-19); Aspartate Amino Transferase 22 U/L (0-40); Blood Urea Nitrogen 12 mg/dL (6-20); Calcium 9.0 mg/dL (8.5-10.5); Carbon Dioxide 28 mmol/L (22-29); Chloride 96 mmol/L (98-107); Globulin 2.4 g/dL (1.3-4.6); Glucose 99 mg/dL (65-115); Lipase 8 U/L (13-60); NT Pro B Type Natriuretic Pept < 36 pg/mL (0-125); Osmolality Calculated 282 mOsm/kg (285-295); Potassium 4.1 mmol/L (3.5-5.1); Sodium 136 mmol/L (136-145); Total Protein 7.1 g/dL (6.6-8.7)
[2025-05-25 23:30] VITALS: BP 153/99; PULSE 100; O2SAT 93
[2025-05-25 23:50] VITALS: BP 154/105; PULSE 96; O2SAT 94
== END 2025-05-25 23:58 | disposition home or self-care (01) ==
PROVIDERS: Emergency Provider Physician Assistant; PCP Family Medicine
DX: R07.89 Other chest pain (principal); I10 Essential (primary) hypertension; Z72.0 Tobacco use
CPT/HCPCS: 71045; 80053; 83690; 83880; 84484; 85025; 93005; 96374; 96375; 99285; J1200; J2919; J9999